=== PATIENT | male | born 1975 | race Caucasian/White ===

== ENCOUNTER 2019-01-27 15:39 | Outpatient (REF) | payer SELFPAY | END 2019-01-27 15:59 | LOC: NCHCN 15:39 | PROVIDERS: PCP Family Medicine; Visit Provider Family Medicine | DX: R73.02 Impaired glucose tolerance (oral) (principal) | CPT/HCPCS: 82043; 82570 ==

== ENCOUNTER 2019-09-08 21:25 | Outpatient (REF) | payer MEDICAID, SELFPAY ==
[2019-09-08 21:46] LABS: Uric Acid 7.7 mg/dL (3.5-7.2)
[2019-09-08 22:03] LABS: Abs Immature Grans 0.01 k/cumm (0.0-0.09); Absolute Basophil Count 0.04 k/cumm (0.0-0.2); Absolute Lymphocyte Count 1.66 k/cumm (1.2-3.4); Absolute Monocyte Count 0.69 k/cumm (0.11-0.7); Absolute Neutrophil Count 4.38 k/cumm (1.2-6.7); Basophils % 0.6; Eosinophils % 4.2; HCT 41.9 % (40.0-50.0); HGB 13.7 g/dL (13.5-17.5); Immature Grans % 0.1; Lymphocytes % 23.4; Mean Corp. HGB Concentration 32.7 g/dL (32.0-36.0); Mean Corpuscular Hemoglobin 28.2 pg (27.0-33.0); Mean Corpuscular Volume 86.2 fL (80-95); Mean Platelet Volume 10.3 fL (8.0-11.0); Monocytes % 9.7; Platelet Count 256 x1000/uL (130-400); RBC 4.86 m/cumm (4.50-6.00); RBC Distribution Width 13.2 % (11.8-14.1); White Blood Cell Count 7.08 k/cumm (4.4-10.8)
[2019-09-11 11:20] LABS: Lyme Ab w Rflx to Lyme Confirm Negative
== END 2019-09-08 21:45 ==
LOC: NCHCN 21:25
PROVIDERS: PCP Family Medicine; Visit Provider Family Medicine
DX: M13.80 Other specified arthritis, unspecified site (principal)
CPT/HCPCS: 84550; 85025; 86618

== ENCOUNTER 2019-09-10 20:17 | Emergency (ER) | payer MEDICAID, SELFPAY ==
[2019-09-10 20:21] VITALS: BP 160/91; PULSE 96; RESP 20; TEMP 36.8; O2SAT 98
--- NOTE | 2019-09-10 20:51 | ED.GENADUL_ITS ---
Discharge Plan Disposition Patient Disposition: HOME Discharge Details Chief Complaint: Orthopedic Clinical Impression: Effusion of left knee Primary Care Provider: Jigna Chacon ED Provider: Shai Navarro Home Meds and New Rx's Prescriptions: Continued aripiprazole [Abilify] 20 mg Tablet 20 mg DAILY RF: 0 buprenorphine-naloxone [Suboxone] 8-2 mg Film 8 film DAILY RF: 0 dextroamphetamine-amphetamine [Adderall] 30 mg Tablet 30 mg PO QAM RF: 0 dextroamphetamine-amphetamine [Adderall] 5 mg Tablet 5 mg PO QHS RF: 0 Discharge Instructions Additional Instructions: Please take acetaminophen (tylenol) - 650mg every 6 hours by mouth as needed for pain. Please contact your primary care physician to arrange follow-up. Please follow-up with orthopedics. Return to the ER for any worsening or new concerning symptoms. Stand Alone Forms: Work Release Referrals: Jigna Chacon [Primary Care Provider] - Tristan Trevizo MD [ [facility] STAFF PHYSICIAN] - Discharge Data Discharge Date/Time-TO BE ENTERED AT DEPARTURE: 09/11/19 00:05 Medical Decision Making 21:00 --43-year-old male presents with left knee pain worsening over the past 3- 4 days, large effusion on exam.. No trauma. Patient received cortisone shot 2 days ago and symptoms have worsened since that time. Consider septic arthritis. Plan for arthrocentesis. LMX applied. --arthrocentesis performed without complication, 6 mL of clear slightly blood- tinged fluid removed. 00:00 --labs reviewed and elevated CRP and ESR. No leukocytosis. Arthrocentesis cell count shows 500 WBCs. This is not consistent with septic arthritis. On reassessment, patient noted significant improvement and able to better range his knee. Plan for crutches. Chito wrap was applied and plan will be for patient to follow-up with orthopedics. HPI General Mode of arrival: ambulatory . Date/Time Provider Initiated Documentation: 09/10/19 20:22 . Limitations to Documentation: no limitations . Information obtained by: patient . HPI Narrative: 43-year-old male presents with chief complaint of knee pain. Patient notes he developed knee pain on . He does not recall any specific injury. He states that his knee swells up every year or so and he receives cortisone injections from PCP. He went to his PCP on Wednesday and had lidocaine/cortisone injection. He notes initially knee felt better and then later in the afternoon started to worsen. Pain has persisted and now worsened over the past 48 hours. Pain is now severe with associated swelling of the knee. No associated fever. No other joint pain or swelling. Related Data Home Medications Medication Instructions Recorded Confirmed aripiprazole [Abilify] 20 mg DAILY 09/10/19 09/10/19 buprenorphine-naloxone [Suboxone] 8 film DAILY 09/10/19 09/10/19 dextroamphetamine-amphetamine 5 mg PO QHS 09/10/19 09/10/19 [Adderall] dextroamphetamine-amphetamine 30 mg PO QAM 09/10/19 09/10/19 [Adderall] Allergies Allergy/AdvReac Type Severity Reaction Status Date / Time No Known Allergies Allergy Unverified 09/10/19 20:25 General Stated Complaint: Orthopedic IFEOMA: 3 Review of Systems All systems reviewed & are unremarkable except as noted in HPI and below Constitutional Constitutional: Denies fever(s) Musculoskeletal Musculoskeletal: Reports as per HPI Integumentary/Breasts Skin/Breast: Denies rash [facility] Social History Smoking/Tobacco Use Status: Never Alcohol Intake: current Alcohol Intake frequency: holidays/special occasions only Alcohol type: beer Drug use: Never Substance use type: does not use Do you feel safe at home: Yes Do you feel safe in your relationship?: Yes Exam Const General: cooperative and uncomfortable HENMN Mouth: moist mucous membranes Eyes Conjunctivae: conjunctivae normal Resp Effort & Inspection: normal respiratory effort and able to speak in complete sentences Auscultation: clear to auscultation bilaterally Cardio Rate: regular rate Rhythm: regular rhythm Heart Sounds: no murmurs Pulses: posterior tibial pulses present on the left 2+ Skin Rashes: no rashes Neuro General: alert and awake Extrem Left lower extremity: knee Details: tenderness, swelling (diffuse) and abnormal ROM Details: held in an abnormal fashion (slight flexion) and pain with active ROM Details: with extension and with flexion Course Vital Signs Vital signs: Vital Signs Temperature 36.8 C 09/10/19 20:21 Pulse 96 H 09/10/19 20:21 Respiratory Rate 09/10/19 20:21 Blood Pressure 160/91 H 09/10/19 20:21 Pulse Oximetry 98 09/10/19 20:21 Temperature 36.8 C 09/10/19 20:21 Temperature Source Skin 09/10/19 20:21 Pulse 96 H 09/10/19 20:21 Respiratory Rate 20 09/10/19 20:21 Respiratory Effort 09/10/19 20:28 Blood Pressure 160/91 H 09/10/19 20:21 Blood Pressure Position Sitting 09/10/19 20:21 Pulse Oximetry 98 09/10/19 20:21 Oxygen Delivery Method Room Air 09/10/19 20:21 Oxygen Flow Rate 0 09/10/19 20:21 Pain Level 09/10/19 20:21 Procedures Joint Aspiration/Injection Joint Asp./Inject. 1: Time Out Performed: Yes Side of body: left Joint Aspirated: knee Skin Prep: Povidone-Iodine1% Local Anesthetic: other anesthetic (LET) Needle Size Used: 18G Fluid Obtained: clear Total fluid obtained (mL): 6 Patient Tolerated Procedure: well Complications: none
[2019-09-10 21:14] LABS: Abs Immature Grans 0.01 k/cumm (0.0-0.09); Absolute Basophil Count 0.03 k/cumm (0.0-0.2); Absolute Eosinophil Count 0.09 k/cumm (0.0-0.7); Absolute Lymphocyte Count 1.58 k/cumm (1.2-3.4); Absolute Monocyte Count 0.92 k/cumm (0.11-0.7); Absolute Neutrophil Count 6.42 k/cumm (1.2-6.7); Basophils % 0.3; HCT 40.2 % (40.0-50.0); HGB 13.3 g/dL (13.5-17.5); Immature Grans % 0.1; Lymphocytes % 17.5; Mean Corp. HGB Concentration 33.1 g/dL (32.0-36.0); Mean Corpuscular Hemoglobin 28.2 pg (27.0-33.0); Mean Corpuscular Volume 85.4 fL (80-95); Mean Platelet Volume 9.6 fL (8.0-11.0); Monocytes % 10.2; Neutrophils % 70.9; Platelet Count 242 x1000/uL (130-400); RBC 4.71 m/cumm (4.50-6.00); RBC Distribution Width 12.7 % (11.8-14.1); White Blood Cell Count 9.05 k/cumm (4.4-10.8)
[2019-09-10 21:23] LABS: ALT 80 U/L (16-63); AST 50 U/L (15-37); Albumin 3.4 g/dL (3.4-5.0); Alkaline Phosphatase 59 U/L (46-116); Anion Gap 6.4 mmol/L (3-11); BUN 10 mg/dL (7-18); Bilirubin, Total 0.4 mg/dL (0.2-1.0); C-Reactive Protein 7.68 mg/dL (0.0-0.3); CO2 30.6 mmol/L (21.0-32.0); CREATININE 1.05 mg/dL (0.70-1.30); Calcium 9.2 mg/dL (8.5-10.1); Chloride 101 mmol/L (98-107); Glucose 141 mg/dL (70-100); Potassium 3.8 mmol/L (3.5-5.1); Sodium 138 mmol/L (136-145); Total Protein 7.6 g/dL (6.4-8.2)
[2019-09-10] MEDS: Acetaminophen 325 MG TAB 650 MG PO (21:32)
[2019-09-10 21:56] LABS: ESR 45 mm/hr (0-15)
[2019-09-10 22:03] LABS: Clarity CLOUDY; Source L KNEE
[2019-09-10 22:04] LABS: Nucleated Cells 500 /MM3 (0-0)
[2019-09-10 22:35] LABS: Mononuclear Cells 40 % (0-0); Polynuclear Cells 60 % (0-0)
[2019-09-11 00:11] VITALS: BP 160/91; PULSE 96; RESP 20; TEMP 36.8; O2SAT 98
== END 2019-09-11 00:05 | disposition home or self-care (01) ==
PROVIDERS: Emergency Provider Student in an Organized Health Care Education/Training Program; PCP Family Medicine
DX: M25.462 Effusion, left knee (principal)
CPT/HCPCS: 20610; 36415; 80053; 85652; 99283; 85025; 86140; 87070; 87205; 89051; 89060; 99282; E0114

== ENCOUNTER 2020-07-26 16:42 | Outpatient (REF) | payer OTHER, SELFPAY ==
[2020-07-26 20:31] LABS: Calculated LDL 121 mg/dL (<100); Cholesterol 193 mg/dL (<200); HDL Cholesterol 39 mg/dL (40-60); Triglyceride 166 mg/dL (<150)
== END 2020-07-26 17:02 ==
LOC: NCHCN 16:42
PROVIDERS: PCP Family Medicine; Visit Provider Registered Nurse
DX: R73.03 Prediabetes (principal); E78.5 Hyperlipidemia, unspecified; F32.9 Major depressive disorder, single episode, unspecified
CPT/HCPCS: 80061; 83036

== ENCOUNTER 2021-02-26 13:07 | Emergency (ER) | payer SELFPAY ==
--- NOTE | 2021-02-26 14:44 | NUR.NOTE ---
Nursing Note: accidently put in father at access. MG
== END 2021-02-26 13:10 ==
PROVIDERS: PCP Family Medicine
DX: R69 Illness, unspecified (principal)

== ENCOUNTER 2021-12-26 16:42 | Outpatient (REF) | payer MEDICAID, SELFPAY ==
[2021-12-26 20:56] LABS: ALT 37 U/L (16-63); AST 29 U/L (15-37); Albumin 3.7 g/dL (3.4-5.0); Alkaline Phosphatase 53 U/L (46-116); Bilirubin, Direct 0.1 mg/dL (0.0-0.2); Bilirubin, Total 0.4 mg/dL (0.2-1.0); Total Protein 6.9 g/dL (6.4-8.2)
== END 2021-12-26 16:43 | disposition home or self-care (01) ==
LOC: NCHCN 16:42
PROVIDERS: PCP Family Medicine; Visit Provider Family Medicine
DX: F11.10 Opioid abuse, uncomplicated (principal)
CPT/HCPCS: 80076

== ENCOUNTER 2022-01-23 18:46 | Outpatient (REF) | payer MEDICAID, SELFPAY ==
[2022-01-23 21:23] LABS: Calculated LDL 139 mg/dL (<100); Cholesterol 202 mg/dL (<200); HDL Cholesterol 50 mg/dL (40-60); Triglyceride 67 mg/dL (<150)
[2022-01-26 10:55] LABS: HIV-1/2 Ag & Ab Screen Negative (Negative)
[2022-01-26 11:01] LABS: Hepatitis C Ab w Rflx HCV PCR Negative (Negative)
== END 2022-01-23 18:47 | disposition home or self-care (01) ==
LOC: NCHCN 18:46
PROVIDERS: PCP Family Medicine; Visit Provider Family Medicine
DX: Z11.4 Encounter for screening for human immunodeficiency virus [HIV] (principal); Z11.59 Encounter for screening for other viral diseases; E78.5 Hyperlipidemia, unspecified
CPT/HCPCS: 80061; 86803; 87389

== ENCOUNTER 2022-07-01 13:10 | Outpatient (REF) | payer MEDICAID, SELFPAY ==
[2022-07-01 14:09] LABS: Anion Gap 6.4 mmol/L (3-11); BUN 14 mg/dL (7-18); CO2 30.6 mmol/L (21.0-32.0); Calcium 8.6 mg/dL (8.5-10.1); Chloride 104 mmol/L (98-107); Glucose 151 mg/dL (74-106); Sodium 141 mmol/L (136-145)
== END 2022-07-01 13:11 | disposition home or self-care (01) ==
LOC: NCHCN 13:10
PROVIDERS: PCP Family Medicine; Visit Provider Nurse Practitioner Family
DX: E66.9 Obesity, unspecified (principal)
CPT/HCPCS: 80048

== ENCOUNTER 2023-08-04 19:04 | Outpatient (REF) | payer MEDICAID, SELFPAY ==
[2023-08-06 09:46] LABS: Hepatitis B Surface Ag Negative (Negative)
[2023-08-06 09:53] LABS: Hep B Core Antibody Negative (Negative)
[2023-08-06 10:18] LABS: HIV-1/2 Ag & Ab Screen Negative (Negative)
[2023-08-06 10:42] LABS: Hepatitis C Ab w Rflx HCV PCR Negative (Negative)
[2023-08-06 11:32] LABS: Syphilis Serology (RPR) Negative (Negative)
[2023-08-06 12:54] LABS: Chlamydia Result Negative (Negative); GC Result Negative (Negative)
== END 2023-08-04 19:05 | disposition home or self-care (01) ==
LOC: NCHCN 19:04
PROVIDERS: PCP Family Medicine; Visit Provider Family Medicine
DX: Z11.3 Encounter for screening for infections with a predominantly sexual mode of transmission (principal); Z11.4 Encounter for screening for human immunodeficiency virus [HIV]; Z11.59 Encounter for screening for other viral diseases; Z01.84 Encounter for antibody response examination
CPT/HCPCS: 86704; 86803; 87340; 87389; 87491; 87591; 86592

== ENCOUNTER 2024-11-01 18:44 | Outpatient (REF) | payer MEDICAID, SELFPAY ==
--- OUTSIDE RECORDS SUMMARY | 2024-11-01 18:47 | XMS_ITS | Encounter Summary ---
Author Organization [facility] Address [address] [place] [id number] Care Team Providers Care Wood Gouger Name Role Phone Unknown, Provider Primary Care Provider Jigna Stephens MD Primary Care Provider [phone] Encounter Details Date Type Department Care Team (Late st Contact Info) Description 08/05/2023 Lab Requisition [facility] Pathology & Laboratory Medicine - [address] [id number] Outr Resulting Lab, Provider Social History Tobacco Use Types Packs/Day Years Used Date Smoking Tobacco: Never Assessed Sex and Gender Information Value Date Recorded Sex Assigned at Male 10/14/2024 15:28 EST Legal Sex Male 18:06 EST Gender Identity Male 10/14/2024 15:28 EST Sexual Orientation Not on file documented as of this encounter Plan of Treatment Not on file documented as of this encounter Procedures Procedure Name Priority Date/Time Associated Diagnosis Comments SYPHILIS SEROLOGY Routine 08/04/2023 18: 40 EDT documented in this encounter Results * SYPHILIS SEROLOGY (08/04/2023 18:40 EDT) Syphilis Serology Negative Negative 08/06/2023 11:27 EDT [facility] Blood VENOUS BLOOD / Unknown 08/04/2023 18:40 EDT 08/05/2023 18:02 EDT us Provider Outr Resulting Lab IMMUNOLOGY AND SEROL OGY ORDERABLES Final Result [facility] [address] [place] [address] documented in this encounter Visit Diagnoses Not on filedocumented in this encounter Care Teams Wood Gouger Relationship Specialty Start Date End Date Unknown, Provider, PCP - General 09/21/15 10/13/24 Jigna Chacon MD [address] [place] [phone] PCP - General Family Medicine - Primary Care 10/14/24 documented as of this encounter
--- OUTSIDE RECORDS SUMMARY | 2024-11-01 18:47 | XMS_ITS ---
Author Organization Unknown Address [address] [place] [phone] Phone Care Team Providers Care Mill Hand Name Role Phone LIBERTAD Alvarez Attending Unavailable KIT An Primary Unavailable Social History Type Status Start Date End Date Code Code Syst em Smoking History Former smoker 9581986 SNOMED CT Sex Male Medications Medication Start Date End Date Route Frequency Dose Code Code System Medication Instructions Home Meds Methocarbamol 500MG Oral Tablet 01/28/2022 02/26/2023 ORAL THREE TIMES A DAY 874272 RxNorm TAKE 1-2 TABLET ORAL THREE TIMES A DAY Assessment You had the following problems:SCHIZOPHRENIABIPOLAR DISORDERDIABETES Hospital Discharge Instructions Should you have any questions prior to discharge, please contact a member of your healthcare team. If you have left the hospital and have any questions, please contact your primary care physician. Reason For Referral No Data Found Problems Problem Start Date Resolved Date Status Code Code System SCHIZOPHRENIA active 80193240 SNOMED -CT BIPOLAR DISORDER active 79609054 SNO MED-CT DIABETES active 49887756 SNOMED-CT Allergies and Adverse Reactions Allergy Substance Reaction Severity Start Date Concern Status Code Code System BEE POLLEN Anaphylaxis (SNOMED-CT: 22032287) Active 066027 RxNorm Plan of Treatment PFT COMPLETE W JUANITOLAJEOVANY 01/19/2023 Encounters Encounter Diagnosis Start Date Code Code Sys tem Refusal of treatment by patient 03/06/2022 589014949 SNOMED-CT Personal Care Team Section Performer Name Performer Role Active Date Inactive Da rigoberto
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
--- OUTSIDE RECORDS SUMMARY | 2024-11-01 18:47 | XMS_ITS | Encounter Summary ---
Author Organization [facility] Address [address] [place] [address] Care Team Providers Care Mash Tub Cooker Name Role Phone Unknown, Provider Primary Care Provider Jigna Stephens MD Primary Care Provider [phone] Encounter Details Date Type Department Care Team (Late st Contact Info) Description 08/05/2023 Lab Requisition [facility] Pathology & Laboratory Medicine - [facility] [address] [place], [place] [phone] Outr Resulting Lab, Provider Social History Tobacco [...] Procedure Name Priority Date/Time Associated Diagnosis Comments HIV 1/2 ANTIGEN AND ANTIBODY, 4TH GENERATION Routine 08/04/2023 18:40 EDT documented in this encounter Results * HIV 1/2 ANTIGEN AND ANTIBODY, 4TH GENERATION (08/04/2023 18:40 EDT) HIV 1 and 2 Antibody/p24 Antigen, 4th Generation Negative Negative 08/06/2023 10:13 EDT [facility] Comment:If acute HIV-1 infec tion is suspected in a high risk patient, submit plasma specimen for HIV-1 RNA quantitation test. Blood VENOUS BLOOD / Unknown 08/04/2023 18:40 EDT 08/05/2023 18:02 EDT Narrative [facility] - 08/06/2023 10:13 EDT Fourth Generation assay performed on the [employer] XPT. us Provider Outr Resulting Lab IMMUNOLOGY AND SEROL OGY ORDERABLES Final Result [facility] [address] [place] [address] documented in this encounter Visit Diagnoses Not on filedocumented in this encounter Care Teams Mash Tub Cooker Relationship Specialty Start Date End Date Unknown, Provider, PCP - General 09/21/15 10/13/24 Jigna Chacon MD [address] [place] [phone] PCP - General Family Medicine - Primary Care 10/14/24 documented as of this encounter
--- OUTSIDE RECORDS SUMMARY | 2024-11-01 18:47 | XMS_ITS | Encounter Summary ---
Author Organization [facility] Address [address] [place] [address] Care Team Providers Care Date Night Sitter Name Role Phone Unknown, Provider MD Primary Care Provider Unava ilable Encounter Details Date Type Department Care Team (Late st Contact Info) Description 09/02/2019 Results Only Imaging [facility] [phone] Unknown, Provider, Social History Tobacco Use Types Packs/Day Years Used Date Smoking Tobacco: Never Assessed Sex and Gender Information Value Date Recorded Sex Assigned at Male 10/14/2024 15:28 EST Legal Sex Male 18:06 EST Gender Identity Male 10/14/2024 15:28 EST Sexual Orientation Not on file documented as of this encounter Plan of Treatment Pending Results Name Type Priority Associated Diagnoses Date /Time OUTSIDE IMAGES - PLAIN FILM MSK Imaging 09/02/2019 22:26 EDT documented as of this encounter Visit Diagnoses Not on filedocumented in this encounter Care Teams Date Night Sitter Relationship Specialty Start Date End Date Unknown, Provider, PCP - General 09/21/15 10/13/24 documented as of this encounter
--- OUTSIDE RECORDS SUMMARY | 2024-11-01 18:47 | XMS_ITS | Encounter Summary ---
Author Organization [facility] Address [address] [place] [address] Care Team Providers Care Ice Cream Machine Operator Name Role Phone Unknown, Provider Primary Care Provider Jigna Stephens MD Primary Care Provider [phone] Encounter Details Date Type Department Care Team (Late st Contact Info) Description 01/23/2022 Lab Requisition [facility] Pathology & Laboratory Medicine - [address] [address] Outr Resulting Lab, Provider Social History Tobacco [...] Procedure Name Priority Date/Time Associated Diagnosis Comments HEPATITIS C AB W REFLEX TO HCV RNA BY PCR Routine 01/23/2022 12:30 EST documented in this encounter Results * HEPATITIS C AB W REFLEX TO HCV RNA BY PCR (01/23/2022 12:30 EST) Hep C Antibody Negative Negative 01/26/2022 10:56 EDT [facility] Blood VENOUS BLOOD / Unknown 01/23/2022 12:30 EST 01/25/2022 16:04 EDT us Provider Outr Resulting Lab CHEMISTRY & BLOOD GA S ORDERABLES Final Result [facility] [address] [place] [address] documented in this encounter Visit Diagnoses Not on filedocumented in this encounter Care Teams Ice Cream Machine Operator Relationship Specialty Start Date End Date Unknown, Provider, PCP - General 09/21/15 10/13/24 Jigna Chacon MD [address] [place] [address] PCP - General Family Medicine - Primary Care 10/14/24 documented as of this encounter
--- OUTSIDE RECORDS SUMMARY | 2024-11-01 18:47 | XMS_ITS | Encounter Summary ---
Author Organization [facility] Address [address] [place] [address] Care Team Providers Care Valve Machine Operator Name Role Phone Unknown, Provider Primary Care Provider Jigna Stephens MD Primary Care Provider [phone] Encounter Details Date Type Department Care Team (Late st Contact Info) Description 08/05/2023 Lab Requisition [facility] Pathology & Laboratory Medicine - [address] [address] Outr Resulting Lab, Provider Social History Tobacco [...] Procedure Name Priority Date/Time Associated Diagnosis Comments CHLAMYDIA/N. GONORRHOEAE AMPLIFIED NUCLEIC ACID Routine 08/04/2023 18:40 EDT documented in this encounter Results * CHLAMYDIA/N. GONORRHOEAE AMPLIFIED RNA (08/04/2023 18:40 EDT) Neisseria gonorrhoeae Result Negative Negative 08/06/2023 12:50 EDT [facility] Chlamydia trachomatis Result Negative Negative 08/06/2023 12:50 EDT [facility] Urine URINE / Unknown 08/04/2023 1 8:40 EDT 08/05/2023 19:28 EDT us Provider Outr Resulting Lab MICROBIOLOGY - GENER AL ORDERABLES Final Result [facility] [address] [place] [address] documented in this encounter Visit Diagnoses Not on filedocumented in this encounter Care Teams Valve Machine Operator Relationship Specialty Start Date End Date Unknown, Provider, PCP - General 09/21/15 10/13/24 Jigna Chacon MD [address] [place] [address] PCP - General Family Medicine - Primary Care 10/14/24 documented as of this encounter
--- OUTSIDE RECORDS SUMMARY | 2024-11-01 18:47 | XMS_ITS | Encounter Summary ---
Author Organization [facility] Address [address] [place] [address] Care Team Providers Care Case Filler Name Role Phone Unknown, Provider Primary Care Provider Jigna Stephens MD Primary Care Provider [phone] Encounter Details Date Type Department Care Team (Late st Contact Info) Description 12/12/2020 Results Only Imaging [facility] Radiology Results [address] [place] [address] Bubba Bender PA-C [address] [place] [address] Social History Tobacco Use Types Packs/Day Years [...] Procedure Name Priority Date/Time Associated Diagnosis Comments XR RIBS LEFT WITH PA CHEST 12/12/2020 16:20 EST documented in this encounter Results * XR RIBS LEFT WITH PA CHEST (12/12/2020 16:20 EST) Anatomical Region Laterality Modality Left Computed Radiogr aphy 12/12/2020 16:2 0 EST Narrative 12/12/2020 16:20 EST ? EXAM: RADIOLOGY/RIBS LT 3V W/ PA CHEST ?EX. D/ (1614) ? CLINICAL INFORMATION: ? Fall onto left ribs ? PROCEDURE INFORMATION: ? Exam: XR Left Ribs ? Exam date and time: 12/12/2020 3:16 PM ? Age: 45 years old ? Clinical indication: Injury or trauma; Fall; Rib area, left ? side; Blunt trauma; Additional info: Fall onto left ribs ? TECHNIQUE: ? Imaging protocol: XR Left ribs. ? Views: 2 views. ? COMPARISON: ? No relevant prior studies available. ? FINDINGS: ? Bones/joints: There is no evidence of a fractured rib. There are ? degenerative changes of the lumbar spine. There is a slight ? levoscoliosis of the lumbar spine. ? Lungs: There is a poor inspiratory effort. ? Gastrointestinal tract: There are feces within the colon which ? could represent some degree of constipation. ? Soft tissues: Normal. ? IMPRESSION: ? Poor inspiratory effort. Suspect some degree of constipation. ? Osseous findings as above. ? REPORT SIGNED IN OTHER VENDOR SYSTEM 12/12/2020 ?Reported By: Lc Quiroz MD ? CC: ? Transcribed Date/Time: 12/12/2020 (1620) ? Mill Platform Supervisor: ? Printed Date/Time: 12/12/2020 (1620) ? PAGE 1 ? Signed Report ? Procedure Note Lc Quiroz MD - 12/12/2020 EXAM: RADIOLOGY/RIBS LT 3V W/ PA CHEST EX. D/ (2054) CLINICAL INFORMATION: Fall onto left ribs PROCEDURE INFORMATION: Exam: XR Left Ribs Exam date and time: 12/12/2020 3:16 PM Age: 45 years old Clinical indication: Injury or trauma; Fall; Rib area, left side; Blunt trauma; Additional info: Fall onto left ribs TECHNIQUE: Imaging protocol: XR Left ribs. Views: 2 views. COMPARISON: No relevant prior studies available. FINDINGS: Bones/joints: There is no evidence of a fractured rib. There are degenerative changes of the lumbar spine. There is a slight levoscoliosis of the lumbar spine. Lungs: There is a poor inspiratory effort. Gastrointestinal tract: There are feces within the colon which could represent some degree of constipation. Soft tissues: Normal. IMPRESSION: Poor inspiratory effort. Suspect some degree of constipation. Osseous findings as above. REPORT SIGNED IN OTHER VENDOR SYSTEM 12/12/2020 Reported By: Lc Quiroz MD CC: Transcribed Date/Time: 12/12/2020 (1619) Mill Platform Supervisor: Printed Date/Time: 12/12/2020 (162) PAGE 1 Signed Report Bubba Bender PA-C IMG DIAGNOSTIC IMAGING ORDERABLE S Final Result documented in this encounter Visit Diagnoses Not on filedocumented in this encounter Care Teams Case Filler Relationship Specialty Start Date End Date Unknown, Provider, PCP - General 09/21/15 10/13/24 Jigna Chacon MD [address] [place] [address] PCP - General Family Medicine - Primary Care 10/14/24 documented as of this encounter
--- OUTSIDE RECORDS SUMMARY | 2024-11-01 18:47 | XMS_ITS | Encounter Summary ---
Author Organization [facility] Address [address] [place] [address] Care Team Providers Care Cement Finisher Helper Name Role Phone Unknown, Provider Primary Care Provider Jigna Stephens MD Primary Care Provider [phone] Encounter Details Date Type Department Care Team (Late st Contact Info) Description 08/05/2023 Lab Requisition [facility] Pathology & Laboratory Medicine - [address] [id number] Outr Resulting Lab, Provider Social History Tobacco [...] REFLEX TO HCV RNA BY PCR Routine 08/04/2023 18:40 EDT HEPATITIS B CORE ANTIBODY (TOTAL) Routine 08/04/2023 18:40 EDT HEPATITIS B SURFACE ANTIGEN Routine 08/04/2023 18:40 EDT documented in this encounter Results * HEPATITIS B CORE ANTIBODY (TOTAL) (08/04/2023 18:40 EDT) Hepatitis B Core Ab, Total Negative Negative 08/06/2023 9:49 EDT [facility] Blood VENOUS BLOOD / Unknown 08/04/2023 18:40 EDT 08/05/2023 18:02 EDT us Provider Outr Resulting Lab CHEMISTRY & BLOOD GA S ORDERABLES Final Result Performing Organization Address City/[facility]/ZIP Co de Phone Number [facility] [address] [place] [address] * HEPATITIS B SURFACE ANTIGEN (08/04/2023 18:40 EDT) Hep B Surface Ag Negative Negative 08/06/2023 9:42 EDT [facility] Blood VENOUS BLOOD / Unknown 08/04/2023 18:40 EDT 08/05/2023 18:02 EDT us Provider Outr Resulting Lab CHEMISTRY & BLOOD GA S ORDERABLES Final Result Performing Organization Address [facility] Co de Phone Number [facility] [address] [place] [address] * HEPATITIS C AB W REFLEX TO HCV RNA BY PCR (08/04/2023 18:40 EDT) Hep C Antibody Negative Negative 08/06/2023 10:38 EDT [facility] Blood VENOUS BLOOD / Unknown 08/04/2023 18:40 EDT 08/05/2023 18:02 EDT us Provider Outr Resulting Lab CHEMISTRY & BLOOD GA S ORDERABLES Final Result Performing Organization Address City/[facility] Co de Phone Number [facility] [address] [place] [address] documented in this encounter Visit Diagnoses Not on filedocumented in this encounter Care Teams Cement Finisher Helper Relationship Specialty Start Date End Date Unknown, Provider, PCP - General 09/21/15 10/13/24 Jigna Chacon MD [address] [place] [phone] PCP - General Family Medicine - Primary Care 10/14/24 documented as of this encounter
--- OUTSIDE RECORDS SUMMARY | 2024-11-01 18:47 | XMS_ITS ---
Author Organization Unknown Address [address] [place] [phone] Phone Care Team Providers Care Revenue Enforcement Collection Agent Name Role Phone TOMAS LUNA Registered Nurse Unavailable TITO Munoz Attending Unavailable UNLISTED PROVIDER - REQUESTED ER Un available KIT An Primary Unavailable Social History Type Status Start Date End Date Code Code Syst em Smoking History Former smoker 9672959 SNOMED CT Sex Male Vital Signs Vital Sign Value Unit Island Value Island Unit Date/Time Recent/Initial? Code Code System Body Mass Index 45.91 kg/m2 02/26/2023 18:37 Initial 48582 -5 INC Systolic Blood Pressure 159 mm[Hg] 02/26/2023 18:37 Initial 8480- 6 LOINC Diastolic Blood Pressure 90 mm[Hg] 02/26/2023 18:37 Initial 8462- 4 LOINC Body Surface Area 2.68 m2 02/26/2023 18:37 Initial 3140- 1 LOINC Height 177.800 0 cm 70.00 in 02/26/2023 18:37 Initial 8302- 2 LOINC O2 Saturation 98 % 2022 18:37 Initial 14536 -5 LOINC Pulse 86.0 /min 02/26/2023 18:37 Initial 8867- 4 LOINC Respiration 16 /min 02/27/20 18:37 Initial 9279- 1 LOINC Temperature 36.6 Kat 97.9 F 02/27/20 18:37 Initial 8310- 5 LOINC Weight 145.15 kg 320.00 lbs 02/26/2023 18:37 Initial 75042 -7 LOINC Medications Medication Start Date End Date Route Frequency Dose Code Code System Medication Instructions Home Meds Methocarbamol 500MG Oral Tablet 01/28/2022 02/26/2023 ORAL THREE TIMES A DAY 340563 RxNorm TAKE 1-2 TABLET ORAL THREE TIMES [...] Date Status Code Code System SCHIZOPHRENIA active 19734410 SNOMED -CT BIPOLAR DISORDER active 60751455 SNO MED-CT DIABETES active 34327742 SNOMED-CT Allergies and Adverse Reactions Allergy Substance Reaction Severity Start Date Concern Status Code Code System BEE POLLEN Anaphylaxis (SNOMED-CT: 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
--- OUTSIDE RECORDS SUMMARY | 2024-11-01 18:47 | XMS_ITS ---
Author Organization Unknown Address [address] [place] [phone] Phone Care Team Providers Care Streetcar Dispatcher Name Role Phone KERVIN OLSON Registered Nurse Unavailable ELSI Beckett Attending Unavailable JONNIE Solomon [facility] Unavailable KIT An Primary Unavailable UNLISTED PROVIDER - REQUESTED Xhandoff Un available Social History Type Status Start Date End Date Code Code Syst em Smoking History Former smoker 1232692 SNOMED CT Sex Male Vital Signs Vital Sign Value Unit Wirt Value Wirt Unit Date/Time Recent/Initial? Code Code System Body Mass Index 39.75 kg/m2 01/28/2022 19:01 Initial 53218 -5 [facility] Systolic Blood Pressure 115 mm[Hg] 01/28/2022 19:01 Initial 8480- 6 LOINC Diastolic Blood Pressure 61 mm[Hg] 01/28/2022 19:01 Initial 8462- 4 [facility] Body Surface Area 2.54 m2 01/28/2022 19:01 Initial 3140- 1 LOINC Height 180.340 0 cm 71.00 in 01/28/2022 19:01 Initial 8302- 2 LOINC O2 Saturation 100 % 2021 19:01 Initial 55427 -5 [facility] Pulse 72.0 /min 01/28/2022 19:01 Initial 8867- 4 LOINC Respiration 16 /min 01/29/20 19:01 Initial 9279- 1 LOINC Temperature 36.1 Kat 97.0 F 01/29/20 19:01 Initial 8310- 5 LOINC Weight 129.27 kg 285.00 lbs 01/28/2022 19:01 Initial 19821 -7 [facility] Medications Medication Start Date End Date Route Frequency Dose Code Code System Medication Instructions Home Meds Methocarbamol 500MG Oral Tablet 01/28/2022 02/26/2023 ORAL THREE TIMES A DAY 734039 RxNorm TAKE 1-2 TABLET ORAL THREE TIMES [...] Date Status Code Code System SCHIZOPHRENIA active 54070202 SNOMED -CT BIPOLAR DISORDER active 57348913 SNO MED-CT DIABETES active 93356103 SNOMED-CT Allergies and Adverse Reactions Allergy Substance Reaction Severity Start Date Concern Status Code Code System BEE POLLEN Anaphylaxis (SNOMED-CT: 44690643) Active 739373 RxNorm Plan of Treatment PFT RIN CURRIE 01/19/2023 Encounters Encounter Diagnosis Start Date Code Code Sys tem Strain of muscle and tendon of back wall of thorax, initial encounter 01/28/2022 SNOMED-CT Personal Care Team Section Performer Name Performer Role Active Date Inactive Chet franklin
--- OUTSIDE RECORDS SUMMARY | 2024-11-01 18:47 | XMS_ITS | Clinical Summary ---
Author Organization [facility] Address [address] [place] [address] Care Team Providers Care Animation Director Name Role Phone Jigna Chacon MD Primary Care Provider [phone] Allergies Active Allergy Reactions Criticality Noted Date Comments Venom-Honey Bee Anaphylaxis High 10/14/2024 Venom-Wasp Anaphylaxis High 03/05/2017 Encounters Date Type Department Care Team Description 10/14/2024 14:28 EST - 10/14/2024 16:00 EST Emergency [facility] Emergency Department [address] [place] [address] Heber Larose MD [place] ([facility]) (Primary Dx) Discharge Disposition: Home or Self Care from Last 3 Months Social History Tobacco Use Types Packs/Day Years Used Date Smoking Tobacco: Every Day Cigarettes 3 0.6 Started: 03/2024 Comments:Cessation of smokin g for ~20 years & resumed 6 months ago Sex and Gender Information Value Date Recorded Sex Assigned at Male 10/14/2024 15:28 EST Legal Sex Male 18:06 EST Gender Identity Male 10/14/2024 15:28 EST Sexual Orientation Not on file Obstetrics History Last Filed Vital Signs Vital Sign Reading Time Taken Comments Blood Pressure 147/90 10/14/2024 1559 EST Pulse 80 10/14/2024 1559 EST Temperature 37 ??C (98.6 ??F) 10/14/2024 1425 EST Respiratory Rate 15 10/14/2024 1559 EST Oxygen Saturation 98% 10/14/2024 1559 EST Inhaled Oxygen Concentration - - Weight 125.2 kg (276 lb) 10/14/2024 1425 EST Height - - Body Mass Index - - Plan of Treatment Health Maintenance Due Date Last Done Comments Hepatitis B Vaccine (1 of 3 - 19+ 3-dose series) 1996 COVID-19 Vaccine ( season) 2024 Hepatitis C Screen Completed 08/04/2023, 01/23/2022 Procedures Procedure Name Priority Date/Time Associated Diagnosis Comments HEPATITIS C AB W REFLEX TO HCV RNA BY PCR Routine 08/04/2023 18:40 EDT from Last 3 Months or Most Recently Relevant to Health Maintenance Results * HEPATITIS C AB W REFLEX TO HCV RNA BY PCR (08/04/2023 18:40 EDT) Hep C Antibody Negative Negative 08/06/2023 10:38 EDT [facility] Blood VENOUS BLOOD / Unknown 08/04/2023 18:40 EDT 08/05/2023 18:02 EDT us Provider Outr Resulting Lab CHEMISTRY & BLOOD GA S ORDERABLES Final Result [facility] [address] [place] [address] from Last 3 Months or Most Recently Relevant to Health Maintenance [place] [address] , [place] [address] , [place] [address] Care Teams Animation Director Relationship Specialty Start Date End Date Jigna Chacon MD [address] [place] [phone] PCP - General Family Medicine - Primary Care 10/14/24
--- OUTSIDE RECORDS SUMMARY | 2024-11-01 18:47 | XMS_ITS | Encounter Summary ---
Author Organization [facility] Address [address] [place] [address] Care Team Providers Care Traffic Incident Management Manager Name Role Phone Unknown, Provider Primary Care Provider Jigna Stephens MD Primary Care Provider [phone] Encounter Details Date Type Department Care Team (Late st Contact Info) Description 01/23/2022 Lab Requisition [facility] Pathology & Laboratory Medicine - [facility] [address] [place], [place] [phone] Outr Resulting Lab, Provider Social History Tobacco [...] 1/2 ANTIGEN AND ANTIBODY, 4TH GENERATION Routine 01/23/2022 12:30 EST documented in this encounter Results * HIV 1/2 ANTIGEN AND ANTIBODY, 4TH GENERATION (01/23/2022 12:30 EST) HIV 1 and 2 Antibody/p24 Antigen, 4th Generation Negative Negative 01/26/2022 10:50 EDT [facility] Comment:If acute HIV-1 infec tion is suspected in a high risk patient, submit plasma specimen for HIV-1 RNA quantitation test. Blood VENOUS BLOOD / Unknown 01/23/2022 12:30 EST 01/25/2022 16:04 EDT Narrative [facility] - 01/26/2022 10:50 EDT Fourth Generation assay performed on the Siemens Centaur XPT. us Provider Outr Resulting Lab IMMUNOLOGY AND SEROL OGY ORDERABLES Final Result [facility] [address] [place] [address] documented in this encounter Visit Diagnoses Not on filedocumented in this encounter Care Teams Traffic Incident Management Manager Relationship Specialty Start Date End Date Unknown, Provider, PCP - General 09/21/15 10/13/24 Jigna Chacon MD [address] [place] [phone] PCP - General Family Medicine - Primary Care 10/14/24 documented as of this encounter
--- OUTSIDE RECORDS SUMMARY | 2024-11-01 18:47 | XMS_ITS | Referral Summary ---
Author Organization [facility] Address [address] [place] [address] Care Team Providers Care Director Of Product Development Name Role Phone Jigna Chacon MD Primary Care Provider Encounters Date Type Department Care Team Description 10/14/2024 14:28 EST - 10/14/2024 16:00 EST Emergency [facility] Emergency Department [address] [place] [address] Heber Larose MD [place] ([facility]) (Primary Dx) Discharge Disposition: Home or Self Care from Last 3 Months Allergies Active Allergy Reactions Criticality Noted Date Comments Venom-Honey Bee Anaphylaxis High 10/14/2024 Venom-Wasp Anaphylaxis High 03/05/2017 Social History Tobacco Use Types Packs/Day Years Used Date Smoking Tobacco: Every Day Cigarettes 3 0.6 Started: 03/2024 Comments:Cessation of smokin g for ~20 years & resumed 6 months ago Sex and Gender Information Value Date Recorded Sex Assigned at Male 10/14/2024 15:28 EST Legal Sex Male 18:06 EST Gender Identity Male 10/14/2024 15:28 EST Sexual Orientation Not on file Last Filed Vital Signs Vital Sign Reading Time Taken Comments Blood Pressure 147/90 10/14/2024 1559 EST Pulse 80 10/14/2024 1559 EST Temperature 37 ??C (98.6 ??F) 10/14/2024 1425 EST Respiratory Rate 15 10/14/2024 1559 EST Oxygen Saturation 98% 10/14/2024 1559 EST Inhaled Oxygen Concentration - - Weight 125.2 kg (276 lb) 10/14/2024 1425 EST Height - - Body Mass Index - - Functional Status * Are you deaf or do you have serious difficulty hearing? Answer Date of Assessment Author No 10/14/2024 14:26 EST Tesha Mireles, EDWIN Plan of Treatment Not on file Procedures Procedure Name Priority Date/Time Associated Diagnosis Comments HEPATITIS C AB W REFLEX TO HCV RNA BY PCR Routine 08/04/2023 18:40 EDT from Last 3 Months or Most Recently Relevant to Health Maintenance Results * HEPATITIS C AB W REFLEX TO HCV RNA BY PCR (08/04/2023 18:40 EDT) Hep C Antibody Negative Negative 08/06/2023 10:38 EDT [facility] Blood VENOUS BLOOD / Unknown 08/04/2023 18:40 EDT 08/05/2023 18:02 EDT us Provider Outr Resulting Lab CHEMISTRY & BLOOD GA S ORDERABLES Final Result [facility] [address] [place] [phone] from Last 3 Months or Most Recently Relevant to Health Maintenance Insurance MEDICAID [place] Care Teams Director Of Product Development Relationship Specialty Start Date End Date Jigna Chacon MD [address] [place] [phone] PCP - General Family Medicine - Primary Care 10/14/24
[2024-11-01 21:32] LABS: COMMENT (LAB VIEW ONLY) 109.13 mg/dL; Microalb ug/mg Crea 2.5 ug/mg Cr
[2024-11-01 21:33] LABS: Anion Gap 7.3 mmol/L (3-11); BUN 18 mg/dL (7-18); CO2 27.7 mmol/L (21.0-32.0); CREATININE 1.1 mg/dL (0.70-1.30); Calcium 9.4 mg/dL (8.5-10.1); Chloride 105 mmol/L (98-107); Estimated GFR 83.32 (mL/min/1.73m2); Glucose 118 mg/dL (74-106); Potassium 4.5 mmol/L (3.5-5.1); Sodium 140 mmol/L (136-145)
== END 2024-11-01 18:45 | disposition home or self-care (01) ==
LOC: NCHCN 18:44
PROVIDERS: PCP Family Medicine; Visit Provider Family Medicine
DX: R73.03 Prediabetes (principal); I10 Essential (primary) hypertension
CPT/HCPCS: 80048; 82043; 82570

== ENCOUNTER 2024-12-29 12:54 | Emergency (ER) | payer MEDICAID, SELFPAY ==
[2024-12-29 12:59] VITALS: BP 132/83; PULSE 75; RESP 20; O2SAT 95
[2024-12-29 13:21] LABS: Bilirubin Negative (Negative); Blood Negative (Negative); Clarity Clear (Clear); Glucose Negative (Negative); Ketones Negative (Negative); Leukocyte Esterase Trace (Negative); Nitrite Negative (Negative); Urobilinogen 0.2 mg/dL (Up to 0.2)
[2024-12-29 13:29] LABS: Bacteria Rare HPF (Negative); C & S Indicated? No; Casts Negative LPF (Negative); Crystals Negative HPF (Negative); Epithelial Cells Rare HPF (Negative); Mucus Negative (Negative); RBC 0-2 HPF (0-2)
[2024-12-29 13:36] LABS: *AMPHETAMINES SCREEN URINE Negative (Negative); *BARBITURATES SCREEN URINE Negative (Negative); *BENZODIAZEPINES SCREEN URINE Negative (Negative); Cannabinoids THC Negative (Negative); Cocaine Screen,Urine Negative (Negative); METHADONE URINE SCREEN Negative (Negative); OPIATES URINE SCREEN Negative (Negative)
[2024-12-29 13:38] LABS: Tricyclic Antidepressants Negative (Negative)
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
[2024-12-29 16:14] LABS: Abs Immature Grans 0.02 10^3/uL (0.0-0.06); Absolute Basophil Count 0.07 10^3/uL (0.0-0.2); Absolute Eosinophil Count 0.18 10^3/uL (0.0-0.7); Absolute Lymphocyte Count 1.79 10^3/uL (1.2-3.4); Absolute Monocyte Count 0.63 10^3/uL (0.1-0.8); Absolute Neutrophil Count 4.42 10^3/uL (1.2-6.7); Eosinophils % 2.5 %; HCT 45.3 % (40.0-50.0); HGB 15.1 g/dL (13.5-17.5); Immature Grans % 0.3 %; Lymphocytes % 25.2 %; MCH 28.6 pg (27.0-33.0); MCHC 33.3 % (32.0-36.0); MCV 86 fL (80-95); MPV 8.6 fL (8.0-11.0); Monocytes % 8.9 %; Neutrophils % 62.1 %; Platelet Count 240 10^3/uL (130-400); RBC 5.28 10^6/uL (4.36-5.78); RDW 12.7 % (11.8-14.1); RDW-SD 39.8 fL; WBC 7.11 10^3/uL (4.4-10.8)
[2024-12-29] MEDS: Buprenorphine/Naloxone 8 mg/2 mg FILM 2 EACH SL (16:34)
[2024-12-29 16:40] LABS: ALT 31 U/L (16-63); AST 18 U/L (15-37); Albumin 3.5 g/dL (3.4-5.0); Alkaline Phosphatase 50 U/L (46-116); Anion Gap 1.5 mmol/L (3-11); BUN 27 mg/dL (7-18); Bilirubin, Total 0.42 mg/dL (0.2-1.0); CO2 31.5 mmol/L (21.0-32.0); Calcium 9.4 mg/dL (8.5-10.1); Chloride 104 mmol/L (98-107); ETHANOL BLOOD < 3.0 mg/dL (<10); Estimated GFR 93.42 (mL/min/1.73m2); Glucose 141 mg/dL (74-106); Potassium 3.9 mmol/L (3.5-5.1); Sodium 137 mmol/L (136-145); TSH (W/Ref FT4) 2.03 uIU/mL (0.36-3.74); Total Protein 7.1 g/dL (6.4-8.2)
[2024-12-29 17:04] LABS: Salicylate < 2.8 mg/dL (<2.8)
[2024-12-29 17:08] LABS: Acetaminophen < 2 ug/mL (10-30)
--- NOTE | 2024-12-29 17:14 | W.EDPROG ---
Date of service: 12/29/24 Time of Service: 17:14 Medical Decision Making Care assumed from off going provider. Patient is currently under an involuntary EE hold. Pending second certification. At this time has been calm and redirectable. Will continue to closely monitor. Quality:SDOH Health Related Social Needs: No Data to Display Discharge Plan Disposition Patient Disposition: Home Condition: Serious Discharge Details Clinical Impression: Paranoid delusion, Threatening behavior Primary Care Provider: Jigna Chacon ED Provider: Juan Carlos Yanes Home Meds and New Rx's Prescriptions: No Action aripiprazole [Abilify] 20 mg Tablet 30 mg PO DAILY buprenorphine-naloxone [Suboxone] 8-2 mg Film 2 film sublingual DAILY dextroamphetamine-amphetamine [Adderall] 30 mg Tablet 30 mg PO QAM dextroamphetamine-amphetamine [Adderall] 5 mg Tablet 5 mg PO QHS
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
[2024-12-29] MEDS: Nicotine 4 MG GUM CH (18:25)
[2024-12-29] MEDS: QUEtiapine 25 MG TAB 100 MG PO (20:06)
--- NOTE | 2024-12-30 06:56 | W.EDPROG ---
Date of service: 12/30/24 Time of Service: 06:56 Medical Decision Making Patient brought in on a mental health warrant. He has been medically cleared. He is on involuntary hold and is waiting second certification from psychiatry. No issues overnight, has been sleeping and cooperative. Discharge Plan Disposition Patient Disposition: Home Condition: Serious Discharge Details Clinical Impression: Paranoid delusion, Threatening behavior Primary Care Provider: Jigna Chacon ED Provider: Dwaien Becerril [place] Siva and New Rx's Prescriptions: No Action aripiprazole [Abilify] 20 mg Tablet 30 mg PO DAILY buprenorphine-naloxone [Suboxone] 8-2 mg Film 2 film sublingual DAILY dextroamphetamine-amphetamine [Adderall] 30 mg Tablet 30 mg PO QAM dextroamphetamine-amphetamine [Adderall] 5 mg Tablet 5 mg PO QHS
[2024-12-30] MEDS: ARIPiprazole 15 MG TAB 30 MG PO (08:43)
[2024-12-30] MEDS: Nicotine 4 MG GUM CH ×2 (10:10→19:36)
--- NOTE | 2024-12-30 10:56 | PDOC.CMSAFE ---
Date of service: 12/30/24 Time of Service: 10:56 Care Management Safety Plan Status Status: Involuntary Reason for Wait Reason for Wait: Inpatient Admission and Assessment/Screening (2nd EE) Safety Plan Safety Plan: INVOLUNTARY FOR INPATIENT PSYCHIATRIC STABILIZATION.? Patient is appropriate in all interactions since arriving at [facility]; Pt has demonstrated appropriate coping and communication skills, has articulated his or her needs and concerns and is fully engaged during staff interactions. Safety plan has been established with patient, and care team, to adhere to patient goals, identify restrictions based on behavioral status, address nutrition, and determine allowed personal belongings, tools for hygiene and personal care. Determine level of activity including ambulation, level of supervision, visitors, and determine privileges based on behaviors and level of engagement by pt. SAFETY PLAN: 1. Will remain on suicide precautions, in paper clothes 2. Will remain in Zone B under direct supervision of one-on-one staff at all times provided by [employer]; HALLE, [employer]CTORY WORKER pasta press operator. 3. May have paper cups, plates, finger foods as well as a cardboard spoon with which to eat meals. 4. Follow [facility] Management of the Admitted Behavioral Health Patient policy. 5. Shower available in Zone B without restriction. 6. Personal belongings-soft items permitted at RN discretion. 7. Visitors-none at this time. 8. Activities: soft cart items approved per RN discretion. 9.? Bathroom available in Zone B without restriction. 10. Phone: limited to [facility] cordless phone at RN discretion. Due to INVOLUNTARY status, patient is being held at [facility] by the Department of Mental Health ([facility]) until 2nd certification by [facility] Psychiatrist can be performed (within 24 hours). Staff will provide de-escalation support (CPI) as needed. If patient wishes to leave [facility], staff will contact [facility] Crisis Screener ([phone]) and Network Professional ([phone]) as soon as possible. In the event of elopement, notify [place] [employer] ([phone]). Patient is currently involuntarily at [facility]. [facility] Frontline Heel Painter will continue seeking placement. Please contact the Network Professional for any needed changes to Safety Plan. Safety plan has been provided to interdepartmental care team. Patient will be transported by MD Lingo at time of discharge.
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
[2024-12-30] MEDS: Buprenorphine/Naloxone 8 mg/2 mg FILM 2 EACH SL (13:46)
--- NOTE | 2024-12-30 15:43 | W.EDPROG ---
Date of service: 12/30/24 Time of Service: 15:43 Medical Decision Making Patient here on involuntary status for decompensated schizophrenia. Pending second CERT. No reported issues on prior shift. Will continue to monitor until safe disposition found. Quality:SDOH Health Related Social Needs: No Data to Display Discharge Plan Disposition Condition: Serious Discharge Details Chief Complaint: PsychEval Clinical Impression: Paranoid delusion, Threatening behavior Primary Care Provider: Jigna Chacon ED Provider: Orlando Parham Home Meds and New Rx's Prescriptions: No Action aripiprazole [Abilify] 20 mg Tablet 30 mg PO DAILY buprenorphine-naloxone [Suboxone] 8-2 mg Film 2 film sublingual DAILY dextroamphetamine-amphetamine [Adderall] 30 mg Tablet 30 mg PO QAM dextroamphetamine-amphetamine [Adderall] 5 mg Tablet 5 mg PO QHS
[2024-12-30] MEDS: LORazepam 1 MG TAB 2 MG PO (19:44)
[2024-12-30] MEDS: QUEtiapine 25 MG TAB 100 MG PO (19:44)
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
[2024-12-31] MEDS: ARIPiprazole 15 MG TAB 30 MG PO (08:18)
[2024-12-31] MEDS: Buprenorphine/Naloxone 8 mg/2 mg FILM 2 EACH SL (08:19)
[2024-12-31 08:21] VITALS: BP 126/73; PULSE 76; RESP 19; O2SAT 96
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
[2024-12-31] MEDS: OLANZapine 10 MG TAB 20 MG PO (11:45)
--- NOTE | 2024-12-31 12:22 | W.EDPROG ---
Date of service: 12/31/24 Time of Service: 12:22 Medical Decision Making Patient is still pending placement. Patient did talk to mental health for the reassessment today, and got notably aggravated during that conversation. He began yelling, pacing, and getting very aggravated about the injustices that were happening to little girls from all the pedophiles that are in the government. We did offer 20 mg of Zyprexa to the patient and he willingly receive the medication. He rested calmly throughout the rest of the shift. Pending placement at this time involuntarily. Quality:SDOH Health Related Social Needs: No Data to Display Discharge Plan Disposition Condition: Serious Discharge Details Chief Complaint: PsychEval Clinical Impression: Paranoid delusion, Threatening behavior Primary Care Provider: Jigna Chacon ED Provider: Marcelo Camacho Home Meds and New Rx's Prescriptions: No Action aripiprazole [Abilify] 20 mg Tablet 30 mg PO DAILY buprenorphine-naloxone [Suboxone] 8-2 mg Film 2 film sublingual DAILY dextroamphetamine-amphetamine [Adderall] 30 mg Tablet 30 mg PO QAM dextroamphetamine-amphetamine [Adderall] 5 mg Tablet 5 mg PO QHS
--- NOTE | 2024-12-31 12:22 | PDOC.CMSAFE ---
Date of service: 12/31/24 Time of Service: 12:22 Care Management Safety Plan Status Status: Involuntary Reason for Wait Reason for Wait: Inpatient Admission Safety Plan Safety Plan: INVOLUNTARY FOR INPATIENT PSYCHIATRIC STABILIZATION. Safety plan has been established to meet the needs of the patient, and consideration of the care team, to adhere to patient goals, identify restrictions based on behavioral status, address nutrition, and determine allowed personal belongings, tools for hygiene and personal care. Determine level of activity including ambulation, level of supervision, visitors, and determine privileges based on behaviors and level of engagement by pt. SAFETY PLAN: 1. Will remain on SI/HI precautions. In Paper Clothes 2. Will remain in room under direct supervision of one-on-one staff at all times provided by [employer]; HALLE, CHIPS SCREEN TENDER neonatal icu coordinator. 3. May have paper cups, plates, finger foods as well as a cardboard spoon 4. Follow [facility] Management of the Admitted Behavioral Health Patient policy. 5. Comfort bath system only. 6. No personal belongings 7. Visitors: none at this time 8. Activities: at discretion of RN 9. ?Bathroom privileges with supervision 10. Phone: None at this time 11. Due to INVOLUNTARY status, patient is being held at [facility] by the Department of Mental Health ([facility]) until 2nd certification by [facility] Psychiatrist can be performed (within 24 hours). Staff will provide de-escalation support (CPI) as needed. If patient wishes to leave [facility], staff will contact [facility] Crisis Screener ([phone]) and On-Call Soyfreeze Operator ([phone]) as soon as possible. In the event of elopement, notify [place] [employer] ([phone]). Patient is currently involuntarily at [facility]. [facility] Frontline Outbound Sales Professional will continue seeking placement. Please contact the Senior Information Developer Soyfreeze Operator ([phone]) for any needed changes to Safety Plan. Safety plan has been provided to interdepartmental care team. Patient will be transported by [employer] at time of discharge.
--- NOTE | 2024-12-31 12:25 | CMPROGNOTE_ITS ---
Date of service: 12/31/24 Time of Service: 12:25 Care Management Progress Note Progress Note Text Progress Note Text: Spoke with RN today, and reviewed [facility] note. Demetris seems to be doing ok. He has not had any issues and is awaiting inpatient hospitalization. Social Determinants of Health Screening Will the Patient Participate in the Screening?: Unable to obtain
[2024-12-31] MEDS: Nicotine 2 MG GUM CH (13:03)
--- NOTE | 2024-12-31 14:20 | W.EDPROG ---
Date of service: 12/31/24 Time of Service: 14:20 Medical Decision Making Patient signed out to me pending involuntary placement for paranoid delusional behavior. Currently without new complaints. Will continue to monitor until safe disposition found Quality:SDOH Health Related Social Needs: No Data to Display Discharge Plan Disposition Condition: Serious Discharge Details Chief Complaint: PsychEval Clinical Impression: Paranoid delusion, Threatening behavior Primary Care Provider: Jigna Chacon ED Provider: Orlando Parham Home Meds and New Rx's Prescriptions: No Action aripiprazole [Abilify] 20 mg Tablet 30 mg PO DAILY buprenorphine-naloxone [Suboxone] 8-2 mg Film 2 film sublingual DAILY dextroamphetamine-amphetamine [Adderall] 30 mg Tablet 30 mg PO QAM dextroamphetamine-amphetamine [Adderall] 5 mg Tablet 5 mg PO QHS
[2024-12-31] MEDS: QUEtiapine 25 MG TAB 100 MG PO (20:40)
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
--- NOTE | 2025-01-01 07:36 | W.EDPROG ---
Date of service: 01/01/25 Time of Service: 07:36 Medical Decision Making Care assumed from outgoing provider. Patient is a 49-year-old gentleman with decompensated schizophrenia, paranoid and delusional behavior. An EE with us currently in place 2nd cert . Pending placement. Quality:[facility] Health Related Social Needs: No Data to Display Discharge Plan Disposition Condition: Serious Discharge Details Chief Complaint: PsychEval Clinical Impression: Paranoid delusion, Threatening behavior Primary Care Provider: Jigna Chacon ED Provider: Juan Carlos Yanes Home Meds and New Rx's Prescriptions: No Action aripiprazole [Abilify] 20 mg Tablet 30 mg PO DAILY buprenorphine-naloxone [Suboxone] 8-2 mg Film 2 film sublingual DAILY dextroamphetamine-amphetamine [Adderall] 30 mg Tablet 30 mg PO QAM dextroamphetamine-amphetamine [Adderall] 5 mg Tablet 5 mg PO QHS
[2025-01-01] MEDS: Buprenorphine/Naloxone 8 mg/2 mg FILM 2 EACH SL (09:40)
[2025-01-01] MEDS: ARIPiprazole 15 MG TAB 30 MG PO (09:47)
--- NOTE | 2025-01-01 11:11 | CMSP_ITS ---
Date of service: 01/01/25 Time of Service: 11:11 Care Management Safety Plan Status Status: Involuntary Reason for Wait Reason for Wait: Inpatient Admission Safety Plan Safety Plan: INVOLUNTARY FOR INPATIENT PSYCHIATRIC STABILIZATION.? Patient is appropriate in all interactions since arriving at [facility]; Pt has demonstrated appropriate coping and communication skills, has articulated his or her needs and concerns and is fully engaged during staff interactions. Safety plan has been established with patient, and care team, to adhere to patient goals, identify restrictions based on behavioral status, address nutrition, and determine allowed personal belongings, tools for hygiene and personal care. Determine level of activity including ambulation, level of supervision, visitors, and determine privileges based on behaviors and level of engagement by pt. SAFETY PLAN: 1. Will remain on suicide precautions, in paper clothes 2. Will remain in Zone B under direct supervision of one-on-one staff at all times provided by [employer]; HALLE, MOBILE HOMES REPAIRER social work supervisor. 3. May have paper cups, plates, finger foods as well as a cardboard spoon with which to eat meals. 4. Follow [facility] Management of the Admitted Behavioral Health Patient policy. 5. Shower available in Zone B without restriction. 6. Personal belongings-soft items permitted at RN discretion. 7. Visitors-none at this time. 8. Activities: soft cart items approved per RN discretion. 9.? Bathroom available in Zone B without restriction. 10. Phone: limited to [facility] cordless phone at RN discretion. Due to INVOLUNTARY status, patient is being held at [facility] by the Department of Mental Health ([facility]) until 2nd certification by [facility] Psychiatrist can be performed (within 24 hours). Staff will provide de-escalation support (CPI) as needed. If patient wishes to leave [facility], staff will contact [facility] Crisis Screener ([phone]) and Tape Weaver ([phone]) as soon as possible. In the event of elopement, notify [place] [employer] ([phone]). Patient is currently involuntarily at [facility]. [facility] Frontline Oil Extractor will continue seeking placement. Please contact the Tape Weaver for any needed changes to Safety Plan. Safety plan has been provided to interdepartmental care team. Patient will be transported by [employer] at time of discharge.
--- NOTE | 2025-01-01 11:11 | PDOC.CMSAFE ---
Date of service: 01/01/25 Time of Service: 11:11 Care Management Safety Plan Status Status: Involuntary Reason for Wait Reason for Wait: Inpatient Admission Safety Plan Safety Plan: INVOLUNTARY FOR INPATIENT PSYCHIATRIC STABILIZATION.? Patient is appropriate in all interactions since arriving at [facility]; Pt has demonstrated appropriate coping and communication skills, has articulated his or her needs and concerns and is fully engaged during staff interactions. Safety plan has been established with patient, and care team, to adhere to patient goals, identify restrictions based on behavioral status, address nutrition, and determine allowed personal belongings, tools for hygiene and personal care. Determine level of activity including ambulation, level of supervision, visitors, and determine privileges based on behaviors and level of engagement by pt. SAFETY PLAN: 1. Will remain on suicide precautions, in paper clothes 2. Will remain in Zone B under direct supervision of one-on-one staff at all times provided by [employer]; HALLE, IRON CUTTER assembler for puller over machine. 3. May have paper cups, plates, finger foods as well as a cardboard spoon with which to eat meals. 4. Follow [facility] Management of the Admitted Behavioral Health Patient policy. 5. Shower available in Zone B without restriction. 6. Personal belongings-soft items permitted at RN discretion. 7. Visitors-none at this time. 8. Activities: soft cart items approved per RN discretion. 9.? Bathroom available in Zone B without restriction. 10. Phone: limited to [facility] cordless phone at RN discretion. Due to INVOLUNTARY status, patient is being held at [facility] by the Department of Mental Health ([facility]) until 2nd certification by [facility] Psychiatrist can be performed (within 24 hours). Staff will provide de-escalation support (CPI) as needed. If patient wishes to leave [facility], staff will contact [facility] Crisis Screener ([phone]) and Senior Art Director ([phone]) as soon as possible. In the event of elopement, notify [place] [employer] ([phone]). Patient is currently involuntarily at [facility]. [facility] Frontline Marketer will continue seeking placement. Please contact the Senior Art Director for any needed changes to Safety Plan. Safety plan has been provided to interdepartmental care team. Patient will be transported by [employer] at time of discharge.
[2025-01-01] MEDS: Nicotine 4 MG GUM CH ×4 (13:08→20:20)
--- NOTE | 2025-01-01 13:36 | CMPROGNOTE_ITS ---
Date of service: 01/01/25 Time of Service: 13:36 Care Management Progress Note Progress Note Text Progress Note Text: CM met with RN, and spoke with HS worker on the phone regarding Demetris. There are no changes noted today. Demetris is awaiting inpatient placement at a mental health facility. Discharge Plan: Demetris will remain in Zone B until placement is found. He will abide by his safety plan. He will continue to have [facility] assessment twice daily. CM will continue to follow. MH Services (Omit if N/A) Current MH Services: [facility] Reason for Wait: Inpatient Admission Social Determinants of Health Screening Will the Patient Participate in the Screening?: Unable to obtain
--- NOTE | 2025-01-01 14:24 | MHPN_ITS ---
Date of service: 01/01/25 Time of Service: 10:40 Mental Health Emergency Note Release [facility] release signed:: Yes Reason for Visit The client is known to [facility] in a limited capacity as he was assessed in October for a mobile crisis assessment after his doctor shared concerns for psychosis. At the time of the mobile crisis assessment the client was referred for outpatient services, however he did not follow through with appointments. Last 12/28 the clients PCP Jigna Chcaon from [facility] outreached with concerns for the clients as the client has become increasingly paranoid and was making threats to his . At that time witness statements were compiled and a MH warrant was written. The client was brought to [facility] ED on 12/29 by VSP. The client is currently at [facility] on involuntary status. The 2nd cert passed on 12/30. This resume writer is seeing the client via telehealth for the first daily re-assessment. In the last 2 weeks has the pt presented for ES prior to today?: No Impression The client is a 49 y/o male that resides in [facility] with his . Screening tools were not completed as they were completed 3 days ago during initial assessment. Client initially presents calm and cooperative, however as the re-assessment continues the client appears to get agitated as evidenced by pacing of the room and refusal to engage with this resume writer. The client continues to report that what was reported about him is in accurate and that his is having an affair and taking all of his money out of the bank. The client reports that he is eating and sleeping well and denies SI/HI. It is reported to this resume writer from [facility] ED staff that each time the client is zoomed he requires some medication to assist him as he gets significantly heightened. Plan/Disposition Recommended Disposition: Hospitalization facilities contacted. Plan: The client will remain at [facility] ED on EE status pending placement in an inpatient facility. The client will be re-assessed 2x daily until placement is secured or the clients acuity level decreases and he is able to be safety planned back to the community. [facility] has declined the client due to acuity level, however this resume writer will outreach to the acute care nurse from [facility] tomorrow to assist for amelia schmitz. Person reported agreement to plan: No Reports/communication Outcome discussed with: ED/Personnel (Verbal given to zone b staff as well as [facility] acute care nurse Lora. )
--- NOTE | 2025-01-01 14:24 | PDOC.MHPN2 ---
Date of service: 01/01/25 Time of Service: 10:40 Mental Health Emergency Note Release [facility] release signed:: Yes Reason for Visit The client is known to [facility] in a limited capacity as he was assessed in October for a mobile crisis assessment after his doctor shared concerns for psychosis. At the time of the mobile crisis assessment the client was referred for outpatient services, however he did not follow through with appointments. Last 12/28 the clients PCP Jigna Chacon from [facility] outreached with concerns for the clients as the client has become increasingly paranoid and was making threats to his . At that time witness statements were compiled and a MH warrant was written. The client was brought to [facility] ED on 12/29 by VSP. The client is currently at [facility] on involuntary status. The 2nd cert passed on 12/30. This conventional mortgage underwriter is seeing the client via telehealth for the first daily re-assessment. In the last 2 weeks has the pt presented for ES prior to today?: No Impression The client is a 49 y/o male that resides in [facility] with his . Screening tools were not completed as they were completed 3 days ago during initial assessment. Client initially presents calm and cooperative, however as the re-assessment continues the client appears to get agitated as evidenced by pacing of the room and refusal to engage with this conventional mortgage underwriter. The client continues to report that what was reported about him is in accurate and that his is having an affair and taking all of his money out of the bank. The client reports that he is eating and sleeping well and denies SI/HI. It is reported to this conventional mortgage underwriter from [facility] ED staff that each time the client is zoomed he requires some medication to assist him as he gets significantly heightened. Plan/Disposition Recommended Disposition: Hospitalization facilities contacted. Plan: The client will remain at [facility] ED on EE status pending placement in an inpatient facility. The client will be re-assessed 2x daily until placement is secured or the clients acuity level decreases and he is able to be safety planned back to the community. [facility] has declined the client due to acuity level, however this conventional mortgage underwriter will outreach to the healthcare specialist from [facility] tomorrow to assist for placement. Person reported agreement to plan: No Reports/communication Outcome discussed with: ED/Personnel (Verbal given to zone b staff as well as [facility] healthcare specialist Lora. )
--- NOTE | 2025-01-01 17:07 | W.EDPROG ---
Date of service: 01/01/25 Time of Service: 17:07 Medical Decision Making Patient on involuntary status for paranoid delusions, no reported issues on prior shift and currently without new acute complaints. Will continue to monitor until safe disposition found Quality:SDOH Health Related Social Needs: No Data to Display Discharge Plan Disposition Condition: Serious Discharge Details Chief Complaint: PsychEval Clinical Impression: Paranoid delusion, Threatening behavior Primary Care Provider: Jigna Chacon ED Provider: Orlando Parahm Home Meds and New Rx's Prescriptions: No Action aripiprazole [Abilify] 20 mg Tablet 30 mg PO DAILY buprenorphine-naloxone [Suboxone] 8-2 mg Film 2 film sublingual DAILY dextroamphetamine-amphetamine [Adderall] 30 mg Tablet 30 mg PO QAM dextroamphetamine-amphetamine [Adderall] 5 mg Tablet 5 mg PO QHS
[2025-01-01] MEDS: QUEtiapine 25 MG TAB 100 MG PO (19:41)
--- NOTE | 2025-01-01 23:02 | PDOC.MHPN2 ---
Date of service: 01/01/25 Time of Service: 20:13 Mental Health Emergency Note Release [facility] release signed:: Yes Reason for Visit Demetris is at [facility] on a mental health warrant due to concerns of his mental health. In the last 2 weeks has the pt presented for ES prior to today?: Unknown Client Information Well Housed: Yes Non Suicidal Self Injury Current: No History: No Safety Risk/Harm to Self or Others Current Ideation to Harm Self or Others: No Risk: Does risk to harm exist?: No Risk: N/A Duty to warn indicated: No Asssessment/Mental Status Appearance: Unremarkable Attitude: Cooperative Behavior: Unremarkable Speech: Normal Affect: Cogruent with mood Mood: Stressed and Anxious Thought process: Goal directed Delusions: No evidence Attention: Unremarkable Perception: Not impaired Orientation: Fully orientated Memory: Intact Insight: Poor Judgement: Poor Neurovegetative Symptoms Sleep: No change Appetitie: No change Interests: No change Energy: No change Libido: Not applicable Substance Use: Do you use nicotine?: No Have you used substances in the last 7 days?: No Additional Issues: Assaultive/Threatening Behavior: No Medical Concerns: No Client engaged in active self harm w/weapon: No Threatening to run away: No Child reported abuse/neglect: No Voluntarily presenting for services: No Domestic violence is a concern: No Extreme Psychosis or extreme behavior is present: Yes Impression Demetris is currently at [facility] on an involuntary hold due to concerns for his mental health. Demetris presents to this policy writer sitting in his room, in paper scrubs. Demetris reports he is doing okay. Demetris continued to say he is okay, doing okay, everything is okay, he is confused why he is in the hospital and reports that the only reason he is there is due to yelling at a doctor. Demetris did not state what caused this or why he acted that way but did report he had nothing else to talk about. Demetris was brief with this policy writer, but pleasant, calm, and respectful. Plan/Disposition Recommended Disposition: Hospitalization facilities contacted. Plan: Demetris will remain at [facility] on a MH Warrant until placement can be found Person reported agreement to plan: Yes Reports/communication Outcome discussed with: ED/Personnel
--- NOTE | 2025-01-02 06:43 | W.EDPROG ---
Date of service: 01/01/25 Time of Service: 22:15 Medical Decision Making This patient was signed out to me. Please see previous notes for H&P and initial eval. In brief, 49yo M here with paranoia, medically cleared, EEd, 2nd cert done, pending placement. No acute events overnight. Will be signed out to oncoming physician, plan remains as above. Quality:SDOH Health Related Social Needs: No Data to Display Discharge Plan Disposition Condition: Serious Discharge Details Chief Complaint: PsychEval Clinical Impression: Paranoid delusion, Threatening behavior Primary Care Provider: Jigna Chacon ED Provider: Justina Wade Home Meds and New Rx's Prescriptions: No Action aripiprazole [Abilify] 20 mg Tablet 30 mg PO DAILY buprenorphine-naloxone [Suboxone] 8-2 mg Film 2 film sublingual DAILY dextroamphetamine-amphetamine [Adderall] 30 mg Tablet 30 mg PO QAM dextroamphetamine-amphetamine [Adderall] 5 mg Tablet 5 mg PO QHS
--- NOTE | 2025-01-02 07:50 | W.EDPROG ---
Date of service: 01/02/25 Time of Service: 07:50 Medical Decision Making Care assumed from outgoing provider. Patient is a 49-year-old gentleman currently on an involuntary hold pending placement. Did have some minor agitation today and as needed medications have been ordered, but no significant outbursts. Quality:[facility] Health Related Social Needs: No Data to Display Discharge Plan Disposition Condition: Serious Discharge Details Chief Complaint: PsychEval Clinical Impression: Paranoid delusion, Threatening behavior Primary Care Provider: Jigna Chacon ED Provider: Juan Carlos Yanes Home Meds and New Rx's Prescriptions: No Action aripiprazole [Abilify] 20 mg Tablet 30 mg PO DAILY buprenorphine-naloxone [Suboxone] 8-2 mg Film 2 film sublingual DAILY dextroamphetamine-amphetamine [Adderall] 30 mg Tablet 30 mg PO QAM dextroamphetamine-amphetamine [Adderall] 5 mg Tablet 5 mg PO QHS
[2025-01-02] MEDS: Buprenorphine/Naloxone 8 mg/2 mg FILM 2 EACH SL (08:40)
[2025-01-02] MEDS: ARIPiprazole 15 MG TAB 30 MG PO (08:41)
[2025-01-02 10:01] VITALS: BP 118/69; PULSE 71; RESP 16; O2SAT 92
[2025-01-02] MEDS: Nicotine 4 MG GUM CH (10:07)
--- NOTE | 2025-01-02 12:16 | MHPN_ITS ---
Date of service: 01/02/25 Time of Service: 12:19 Mental Health Emergency Note Release [facility] release signed:: Yes Reason for Visit The client is known to [facility] in a limited capacity as he was assessed in October for a mobile crisis assessment after his doctor shared concerns for psychosis. At the time of the mobile crisis assessment the client was referred for outpatient services, however he did not follow through with appointments. Last 12/28 the clients PCP Jigna Chacon from [facility] outreached with concerns for the clients as the client has become increasingly paranoid and was making threats to his . At that time witness statements were compiled and a MH warrant was written. The client was brought to [facility] ED on 12/29 by VSP. The client is currently at [facility] on involuntary status. The 2nd cert passed on 12/30. This assessment was completed face to face at bedside. In the last 2 weeks has the pt presented for ES prior to today?: Unknown Impression The client is a 49 y/o male that resides in [place] with his . Screening tools were not completed as they were completed during the initial assessment. The client is playing with a deck of cards standing up when this clinician arrived. He stated he is good and I want to go home. He makes fair eye contact and was cooperative during the assessment however, as this clinician was leaving the room he started to become increasingly agitated as evidenced by yelling, demanding his clothes and to speak to a traffic maintenance officer. He was so disruptive that when this clinician was assessing another client that client was becoming deregulated. The client was observed during the assessment to be pacing and eye contact was moderate. He rambles on about the president and his being the reason he is in his current situation. They think I am nuts. He speaks about President Trchau killing young women he needs to be investigated. The client reported that he slept like a baby and his appetite is awesome. At no time did this clinician feel unsafe directly however, his behaviors and thought process continue to put him and his in danger as well as the community. Plan/Disposition Recommended Disposition: Hospitalization facilities contacted. Plan: The client will remain at [facility] pending acceptance and bed availability in a psychiatric facility. He will be re-assessed daily until such time for appropriateness of care. This clinician outreached to [facility]'s director of healthcare systems who reported that the client is in the top 2 of next in line for placement. Person reported agreement to plan: No Reports/communication Outcome discussed with: ED/Personnel
--- NOTE | 2025-01-02 14:03 | CMSP_ITS ---
Date of service: 01/02/25 Time of Service: 14:03 Care Management Safety Plan Status Status: Involuntary Reason for Wait Reason for Wait: Inpatient Admission Safety Plan Safety Plan: INVOLUNTARY FOR INPATIENT PSYCHIATRIC STABILIZATION.? Patient is appropriate in all interactions since arriving at [facility]; Pt has demonstrated appropriate coping and communication skills, has articulated his or her needs and concerns and is fully engaged during staff interactions. Safety plan has been established with patient, and care team, to adhere to patient goals, identify restrictions based on behavioral status, address nutrition, and determine allowed personal belongings, tools for hygiene and personal care. Determine level of activity including ambulation, level of supervision, visitors, and determine privileges based on behaviors and level of engagement by pt. SAFETY PLAN: 1. Will remain on suicide precautions, in paper clothes 2. Will remain in Zone B under direct supervision of one-on-one staff at all times provided by [employer]; HALLE, NURSES' REGISTRY DIRECTOR networking engineer. 3. May have paper cups, plates, finger foods as well as a cardboard spoon with which to eat meals. 4. Follow [facility] Management of the Admitted Behavioral Health Patient policy. 5. Shower available in Zone B without restriction. 6. Personal belongings-soft items permitted at RN discretion. 7. Visitors-none at this time. 8. Activities: soft cart items approved per RN discretion. TV permitted; staff to hold remote and provide suggestions for content to reduce/prevent agitation. 9.? Bathroom available in Zone B without restriction. 10. Phone: limited to [facility] cordless phone at RN discretion. Due to INVOLUNTARY status, patient is being held at [facility] by the Department of Mental Health ([facility]) until 2nd certification by [facility] Psychiatrist can be performed (within 24 hours). Staff will provide de-escalation support (CPI) as needed. If patient wishes to leave [facility], staff will contact [facility] Crisis Screener ([phone]) and Foreign Policy Officer ([phone]) as soon as possible. In the event of elopement, notify [place] [employer] ([phone]). Patient is currently involuntarily at [facility]. [facility] Frontline Flap Curer will continue seeking placement. Please contact the Foreign Policy Officer for any needed changes to Safety Plan. Safety plan has been provided to interdepartmental care team. Patient will be transported by [facility] at time of discharge.
--- NOTE | 2025-01-02 15:14 | CMPROGNOTE_ITS ---
Date of service: 01/02/25 Time of Service: 15:14 Care Management Progress Note Progress Note Text Progress Note Text: CM huddled with staff regarding Demetris's plan of care. At the time of the huddle, Demetris appeared to have increased agitation while talking with another patient in zone B; staff supported both patients by suggesting that the other return to his room. Per RN, he has been increasingly agitated and delusional today, especially after being assessed by [facility]. He has expressed the desire to return home, and reported to [facility] that he has no memory of threatening his . Per report, he has asked to talk with his equipment operating engineer; CM advised that he has a right to legal [place] and stated that he may call [place] legal instructor at any time. Per [facility], Demetris was assessed by an [facility] clinician in October 2024, and his presentation is significantly worse at this time. He completed intake with [facility] in October, but did not follow through with appointments which were made at that time. [facility] stated that [facility] was contacted, and they were informed that Demetris is a high priority (#1/#2) for placement. Demetris is currently involuntary, being held for inpatient psychiatric treatment. Safety plan in place; no changes at this time. CM will continue to follow. Social Determinants of Health Screening Will the Patient Participate in the Screening?: Unable to obtain
--- NOTE | 2025-01-02 15:14 | PDOC.CMPRO ---
Date of service: 01/02/25 Time of Service: 15:14 Care Management Progress Note Progress Note Text Progress Note Text: CM huddled with staff regarding Demetris's plan of care. At the time of the huddle, Demetris appeared to have increased agitation while talking with another patient in zone B; staff supported both patients by suggesting that the other return to his room. Per RN, he has been increasingly agitated and delusional today, especially after being assessed by [facility]. He has expressed the desire to return home, and reported to [facility] that he has no memory of threatening his . Per report, he has asked to talk with his cryogenics engineer; CM advised that he has a right to legal [place], and stated that he may call [place] family law legal assistant at any time. Per [facility], Demetris was assessed by an [facility] clinician in October 2024, and his presentation is significantly worse at this time. He completed intake with [facility] in October, but did not follow through with appointments which were made at that time. [facility] stated that [facility] was contacted, and they were informed that Demetris is a high priority (#1/#2) for placement. Demetris is currently involuntary, being held for inpatient psychiatric treatment. Safety plan in place; no changes at this time. CM will continue to follow. Social Determinants of Health Screening Will the Patient Participate in the Screening?: Unable to obtain
--- NOTE | 2025-01-02 16:23 | W.EDPROG ---
Date of service: 01/02/25 Time of Service: 16:33 Medical Decision Making I received signout on this 49-year-old male. EE with second cert in place. Pending placement. Had some mild increasing agitation today, but is redirectable. As needed medications have been ordered. Will update documentation as clinically warranted and signed patient out to overnight provider. 10:45 PM No active behavioral issues. I signed patient out to Dr. Wade. Quality:SDOH Health Related Social Needs: No Data to Display Discharge Plan Disposition Condition: Serious Discharge Details Chief Complaint: PsychEval Clinical Impression: Paranoid delusion, Threatening behavior Primary Care Provider: Jigna Chacon ED Provider: Orlando Blue Home Meds and New Rx's Prescriptions: No Action aripiprazole [Abilify] 20 mg Tablet 30 mg PO DAILY buprenorphine-naloxone [Suboxone] 8-2 mg Film 2 film sublingual DAILY dextroamphetamine-amphetamine [Adderall] 30 mg Tablet 30 mg PO QAM dextroamphetamine-amphetamine [Adderall] 5 mg Tablet 5 mg PO QHS
[2025-01-02] MEDS: QUEtiapine 25 MG TAB 100 MG PO (19:40)
--- NOTE | 2025-01-02 22:26 | PDOC.MHPN2 ---
Date of service: 01/02/25 Time of Service: 18:30 Mental Health Emergency Note Release [facility] release signed:: Yes Reason for Visit Demetris is currently at [facility] on a MH Warrant. Demetris is previously known to [facility] and this health underwriter. Demetris will remain at [facility] until inpatient placement can be secured. In the last 2 weeks has the pt presented for ES prior to today?: Unknown Client Information Well Housed: Yes Non Suicidal Self Injury Current: No History: No Safety Risk/Harm to Self or Others Current Ideation to Harm Self or Others: No Risk: Does risk to harm exist?: No Risk: N/A Duty to warn indicated: No Asssessment/Mental Status Appearance: Disheveled Attitude: Passive and Guarded Behavior: Unremarkable Speech: Normal Affect: Cogruent with mood Mood: Stressed and Anxious Thought process: Unremarkable Hallucinations: No evidence Delusions: No evidence Attention: Unremarkable Perception: Not impaired Orientation: Fully orientated Memory: Intact Insight: Poor Judgement: Poor Neurovegetative Symptoms Sleep: No change Appetitie: No change Interests: No change Energy: No change Libido: Not applicable Substance Use: Do you use nicotine?: No Have you used substances in the last 7 days?: No Additional Issues: Assaultive/Threatening Behavior: No Medical Concerns: No Client engaged in active self harm w/weapon: No Threatening to run away: No Child reported abuse/neglect: No Voluntarily presenting for services: No Domestic violence is a concern: No Extreme Psychosis or extreme behavior is present: Yes Impression Demetris presents to this health underwriter pacing in his room, he sits on his bed once the assessment begins. Demetris presents in his paper scrubs, reports he is fine, his day was fine. Demetris reports he has not done much other than watch TV as there are not many things to do while in the hospital. Demetris reports good sleep, good appetite, he has taken his medications. Demetris denies SI, HI and NSSI to this health underwriter. Demetris reports he does not need anything and has nothing else to talk about. Plan/Disposition Recommended Disposition: Hospitalization facilities contacted. Plan: Demetris will remain at [facility] on a MH Warrant until he is placed at an inpatient facility. Person reported agreement to plan: Yes Reports/communication Outcome discussed with: ED/Personnel
--- NOTE | 2025-01-03 06:49 | W.EDPROG ---
Date of service: 01/02/25 Time of Service: 23:30 Medical Decision Making This patient was signed out to me. Please see previous notes for HPI and initial eval. In brief, 49yo M, paranoia, EEd with 2nd cert done, medically cleared pending placement. No acute events overnight. Will be signed out to oncoming physician, plan remains as above. Quality:SDOH Health Related Social Needs: No Data to Display Discharge Plan Disposition Condition: Serious Discharge Details Chief Complaint: PsychEval Clinical Impression: Paranoid delusion, Threatening behavior Primary Care Provider: Jigna Chacon ED Provider: Justina Wade Home Meds and New Rx's Prescriptions: No Action aripiprazole [Abilify] 20 mg Tablet 30 mg PO DAILY buprenorphine-naloxone [Suboxone] 8-2 mg Film 2 film sublingual DAILY dextroamphetamine-amphetamine [Adderall] 30 mg Tablet 30 mg PO QAM dextroamphetamine-amphetamine [Adderall] 5 mg Tablet 5 mg PO QHS
[2025-01-03 08:31] VITALS: BP 132/79; PULSE 72; RESP 19; O2SAT 94
[2025-01-03] MEDS: ARIPiprazole 15 MG TAB 30 MG PO (08:37)
[2025-01-03] MEDS: Buprenorphine/Naloxone 8 mg/2 mg FILM 2 EACH SL (08:37)
--- NOTE | 2025-01-03 09:47 | CMSP_ITS ---
Date of service: 01/03/25 Time of Service: 09:47 Care Management Safety Plan Status Status: Involuntary Reason for Wait Reason for Wait: Inpatient Admission Safety Plan Safety Plan: INVOLUNTARY FOR INPATIENT PSYCHIATRIC STABILIZATION.? Patient is appropriate in all interactions since arriving at [facility]; Pt has demonstrated appropriate coping and communication skills, has articulated his or her needs and concerns and is fully engaged during staff interactions. Safety plan has been established with patient, and care team, to adhere to patient goals, identify restrictions based on behavioral status, address nutrition, and determine allowed personal belongings, tools for hygiene and personal care. Determine level of activity including ambulation, level of supervision, visitors, and determine privileges based on behaviors and level of engagement by pt. SAFETY PLAN: 1. Will remain on suicide precautions, in paper clothes 2. Will remain in Zone B under direct supervision of one-on-one staff at all times provided by [employer]; HALLE, SUPERVISOR OF GUIDANCE AND TESTING inspector optical instrument. 3. May have paper cups, plates, finger foods as well as a cardboard spoon with which to eat meals. 4. Follow [facility] Management of the Admitted Behavioral Health Patient policy. 5. Shower available in Zone B without restriction. 6. Personal belongings-soft items permitted at RN discretion. 7. Visitors-none at this time. 8. Activities: soft cart items approved per RN discretion. TV permitted; staff to hold remote and provide suggestions for content to reduce/prevent agitation. 9.? Bathroom available in Zone B without restriction. 10. Phone: limited to [facility] cordless phone at RN discretion. Due to INVOLUNTARY status, patient is being held at [facility] by the Department of Mental Health ([facility]) until 2nd certification by [facility] Psychiatrist can be performed (within 24 hours). Staff will provide de-escalation support (CPI) as needed. If patient wishes to leave [facility], staff will contact [facility] Crisis Screener ([phone]) and Sagger Filler ([phone]) as soon as possible. In the event of elopement, notify [place] [employer] ([phone]). Patient is currently involuntarily at [facility]. [facility] Frontline Scheduling Clerk will continue seeking placement. Please contact the Sagger Filler for any needed changes to Safety Plan. Safety plan has been provided to interdepartmental care team. Patient will be transported by [facility] at time of discharge.
--- NOTE | 2025-01-03 09:47 | PDOC.CMSAFE ---
Date of service: 01/03/25 Time of Service: 09:47 Care Management Safety Plan Status Status: Involuntary Reason for Wait Reason for Wait: Inpatient Admission Safety Plan Safety Plan: INVOLUNTARY FOR INPATIENT PSYCHIATRIC STABILIZATION.? Patient is appropriate in all interactions since arriving at [facility]; Pt has demonstrated appropriate coping and communication skills, has articulated his or her needs and concerns and is fully engaged during staff interactions. Safety plan has been established with patient, and care team, to adhere to patient goals, identify restrictions based on behavioral status, address nutrition, and determine allowed personal belongings, tools for hygiene and personal care. Determine level of activity including ambulation, level of supervision, visitors, and determine privileges based on behaviors and level of engagement by pt. SAFETY PLAN: 1. Will remain on suicide precautions, in paper clothes 2. Will remain in Zone B under direct supervision of one-on-one staff at all times provided by [employer]; HALLE, RETAIL GENERAL MANAGER director of business applications. 3. May have paper cups, plates, finger foods as well as a cardboard spoon with which to eat meals. 4. Follow [facility] Management of the Admitted Behavioral Health Patient policy. 5. Shower available in Zone B without restriction. 6. Personal belongings-soft items permitted at RN discretion. 7. Visitors-none at this time. 8. Activities: soft cart items approved per RN discretion. TV permitted; staff to hold remote and provide suggestions for content to reduce/prevent agitation. 9.? Bathroom available in Zone B without restriction. 10. Phone: limited to [facility] cordless phone at RN discretion. Due to INVOLUNTARY status, patient is being held at [facility] by the Department of Mental Health ([facility]) until 2nd certification by [facility] Psychiatrist can be performed (within 24 hours). Staff will provide de-escalation support (CPI) as needed. If patient wishes to leave [facility], staff will contact [facility] Crisis Screener ([phone]) and Laborer Driver ([phone]) as soon as possible. In the event of elopement, notify [place] [employer] ([phone]). Patient is currently involuntarily at [facility]. [facility] Frontline Stripper Latex will continue seeking placement. Please contact the Laborer Driver for any needed changes to Safety Plan. Safety plan has been provided to interdepartmental care team. Patient will be transported by [facility] at time of discharge.
--- NOTE | 2025-01-03 13:52 | NUR.NOTE ---
Nursing Note: D/T PT showing approp behavior all day this RN let PT speak on the phone with who called in to facility. Because of past behavior with this RN asked patient to only speak on the phone with her for 5 mins. At 4 mins this nurse heard pt yell this is bullshit PT was reminded of the 5 min phone call limit and he handed over the phone without any issues. PT also spoke with legal rep with no issues.
--- NOTE | 2025-01-03 15:32 | ED.PROG_ITS ---
Date of service: 01/03/25 Time of Service: 15:32 Medical Decision Making Patient was signed out to me by my colleague pending placement. He has been accepted at [facility]. I spoke with nurse practitioner Ethan Hernandez, who accepts the patient for transfer. I have extensively reviewed the treatment plan with the patient. I have addressed all patient concerns at this time. I have also discussed the plan with the admitting physician and they agree with the current assessment and plan and have agreed to assume responsibility for the patient. All parties demonstrate verbal understanding and agreement with our assessment and plan at this time. The documentation in this chart was dictated using [employer] dictation software. Please excuse any dictation errors. Quality:SDOH Health Related Social Needs: No Data to Display Discharge Plan Disposition Patient Disposition: Psychiatric Hospital/Unit Specific Psychiatric Facility: [facility] Condition: Serious Discharge Details Chief Complaint: PsychEval Clinical Impression: Paranoid delusion, Threatening behavior Primary Care Provider: Jigna Chacon ED Provider: Marcelo Camacho Home Meds and New Rx's Prescriptions: No Action aripiprazole [Abilify] 20 mg Tablet 30 mg PO DAILY buprenorphine-naloxone [Suboxone] 8-2 mg Film 2 film sublingual DAILY dextroamphetamine-amphetamine [Adderall] 30 mg Tablet 30 mg PO QAM dextroamphetamine-amphetamine [Adderall] 5 mg Tablet 5 mg PO QHS
--- NOTE | 2025-01-03 16:39 | PDOC.CMPRO ---
Date of service: 01/03/25 Time of Service: 16:39 Care Management Progress Note Progress Note Text Progress Note Text: CM huddled with staff regarding Demetris's plan of care. During the huddle, he was playing cards with another patient. Per RN, he has been doing well today, and is interacting with staff appropriately, and is taking medications as prescribed. Per [facility], [facility] is considering him for admission today, pending bed availability. [facility], and transport was arranged through [facility] HALINA will continue to follow. Social Determinants of Health Screening Will the Patient Participate in the Screening?: Unable to obtain
== END 2025-01-03 17:15 ==
PROVIDERS: Student in an Organized Health Care Education/Training Program; Emergency Provider Student in an Organized Health Care Education/Training Program; PCP Family Medicine
DX: F20.0 Paranoid schizophrenia (principal); R45.5 Hostility; F11.20 Opioid dependence, uncomplicated
CPT/HCPCS: 00123; 80053; 80307; 99285; 80320; 80329; 81003; 81015; 84443; 85025

== ENCOUNTER 2025-02-01 15:14 | Outpatient (REF) | payer MEDICAID, SELFPAY ==
[2025-02-01 22:12] LABS: Hemoglobin A1C 6.1 % (<5.7)
== END 2025-02-01 15:15 | disposition home or self-care (01) ==
LOC: NCHCN 15:14
PROVIDERS: PCP Family Medicine; Visit Provider Family Medicine
DX: R73.03 Prediabetes (principal)
CPT/HCPCS: 83036

== ENCOUNTER 2025-03-22 17:10 | Emergency (ER) | payer MEDICAID, SELFPAY ==
[2025-03-22 17:11] VITALS: BP 155/98; PULSE 93; RESP 16; TEMP 36.5; O2SAT 95
[2025-03-22 17:45] LABS: Abs Immature Grans 0.02 10^3/uL (0.0-0.06); Absolute Basophil Count 0.04 10^3/uL (0.0-0.2); Absolute Eosinophil Count 0.31 10^3/uL (0.0-0.7); Absolute Lymphocyte Count 1.63 10^3/uL (1.2-3.4); Absolute Monocyte Count 0.57 10^3/uL (0.1-0.8); Absolute Neutrophil Count 5.21 10^3/uL (1.2-6.7); Basophils % 0.5 %; HCT 45.6 % (40.0-50.0); HGB 14.9 g/dL (13.5-17.5); Immature Grans % 0.3 %; MCHC 32.7 % (32.0-36.0); MCV 86 fL (80-95); MPV 9.1 fL (8.0-11.0); Monocytes % 7.3 %; Neutrophils % 66.9 %; Platelet Count 251 10^3/uL (130-400); RBC 5.32 10^6/uL (4.36-5.78); RDW 12.9 % (11.8-14.1); RDW-SD 39.8 fL; WBC 7.78 10^3/uL (4.4-10.8)
[2025-03-22] MEDS: ARIPiprazole 15 MG TAB 30 MG PO (17:59)
[2025-03-22] MEDS: metFORMIN 500 MG TAB PO (18:16)
[2025-03-22] MEDS: risperiDONE 1 MG TAB PO (18:16)
[2025-03-22 18:17] LABS: *AMPHETAMINES SCREEN URINE Negative (Negative); *BARBITURATES SCREEN URINE Negative (Negative); *BENZODIAZEPINES SCREEN URINE Negative (Negative); Cannabinoids THC Negative (Negative); Cocaine Screen,Urine Positive (Negative); METHADONE URINE SCREEN Negative (Negative); OPIATES URINE SCREEN Negative (Negative)
[2025-03-22 18:18] LABS: Salicylate < 2.8 mg/dL (<2.8)
[2025-03-22 18:21] LABS: Tricyclic Antidepressants Negative (Negative)
[2025-03-22 18:22] LABS: Acetaminophen < 2 ug/mL (10-30)
[2025-03-22 18:39] LABS: ALT 26 U/L (16-63); AST 21 U/L (15-37); Albumin 3.7 g/dL (3.4-5.0); Alkaline Phosphatase 57 U/L (46-116); Anion Gap 4.6 mmol/L (3-11); BUN 21 mg/dL (7-18); Bilirubin, Total 0.3 mg/dL (0.2-1.0); CO2 32.4 mmol/L (21.0-32.0); CREATININE 1.1 mg/dL (0.70-1.30); Calcium 9.6 mg/dL (8.5-10.1); Chloride 103 mmol/L (98-107); Estimated GFR 83.32 (mL/min/1.73m2); Glucose 118 mg/dL (74-106); Potassium 3.7 mmol/L (3.5-5.1); Sodium 140 mmol/L (136-145); TSH (W/Ref FT4) 2.35 uIU/mL (0.36-3.74); Total Protein 7.6 g/dL (6.4-8.2)
[2025-03-22 18:41] LABS: ETHANOL BLOOD < 3.0 mg/dL (<10)
[2025-03-22] MEDS: Nicotine 4 MG GUM CH (18:43)
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
[2025-03-23] MEDS: ARIPiprazole 15 MG TAB 30 MG PO (08:08)
[2025-03-23] MEDS: metFORMIN 500 MG TAB PO ×2 (08:08→15:43)
[2025-03-23] MEDS: risperiDONE 0.5 MG TAB PO (08:09)
[2025-03-23] MEDS: Buprenorphine/Naloxone 8 mg/2 mg FILM 2 EACH SL (08:09)
[2025-03-23 08:41] VITALS: BP 134/78; PULSE 86; RESP 18; TEMP 36.5; O2SAT 97
[2025-03-23] MEDS: Nicotine 4 MG GUM CH ×5 (09:47→19:39)
--- NOTE | 2025-03-23 11:55 | PDOC.CMSAFE ---
Documented by User: Candace Stauffer 03/23/25 11:55 Date of service: 03/23/25 Time of Service: 11:55 Care Management Safety Plan Status Status: Involuntary Reason for Wait Reason for Wait: Inpatient Admission Safety Plan Safety Plan: INVOLUNTARY FOR INPATIENT PSYCHIATRIC STABILIZATION. Safety plan has been established to meet the needs of the patient, and consideration of the care team, to adhere to patient goals, identify restrictions based on behavioral status, address nutrition, and determine allowed personal belongings, tools for hygiene and personal care. Determine level of activity including ambulation, level of supervision, visitors, and determine privileges based on behaviors and level of engagement by pt. SAFETY PLAN: 1. Will remain on SI/HI precautions. In Paper Clothes 2. Will remain in room under direct supervision of one-on-one staff at all times provided by [employer]; HALLE, TESTING DIRECTOR wire brush operator. 3. May have paper cups, plates, finger foods as well as a cardboard spoon 4. Follow [facility] Management of the Admitted Behavioral Health Patient policy. 5. Comfort bath system only. 6. No personal belongings 7. Visitors: none at this time. 8. Activities: soft cart items approved per RN discretion. 9. ?Bathroom privileges with supervision 10. Phone: None at this time 11. Due to INVOLUNTARY status, patient is being held at [facility] by the Department of Mental Health ([facility]) until 2nd certification by [facility] Psychiatrist can be performed (within 24 hours). Staff will provide de-escalation support (CPI) as needed. If patient wishes to leave [facility], staff will contact [facility] Crisis Screener ([phone]) and On-Call Policy Adviser ([phone]) as soon as possible. In the event of elopement, notify [place] [employer] ([phone]). Patient is currently involuntarily at [facility]. [facility] Frontline Machine Shop Inspector will continue seeking placement. Please contact the Store Clerk Policy Adviser ([phone]) for any needed changes to Safety Plan. Safety plan has been provided to interdepartmental care team. Patient will be transported by [employer] at time of discharge. Documented by User: Briseyda Barillas 03/23/25 15:08 Care Management Safety Plan Safety Plan Safety Plan: INVOLUNTARY FOR INPATIENT PSYCHIATRIC STABILIZATION.? Patient is appropriate in all interactions since arriving at [facility]; Pt has demonstrated appropriate coping and communication skills, has articulated his or her needs and concerns and is fully engaged during staff interactions. Safety plan has been established with patient, and care team, to adhere to patient goals, identify restrictions based on behavioral status, address nutrition, and determine allowed personal belongings, tools for hygiene and personal care. Determine level of activity including ambulation, level of supervision, visitors, and determine privileges based on behaviors and level of engagement by pt. SAFETY PLAN: 1. Will remain on suicide precautions, in paper clothes 2. Will remain in Zone B under direct supervision of one-on-one staff at all times provided by [employer]; HALLE, TESTING DIRECTOR wire brush operator. 3. May have paper cups, plates, finger foods as well as a cardboard spoon with which to eat meals. 4. Follow [facility] Management of the Admitted Behavioral Health Patient policy. 5. Shower available in Zone B without restriction. 6. Personal belongings-soft items permitted at RN discretion. 7. Visitors-none at this time. 8. Activities: soft cart items approved per RN discretion. 9.? Bathroom available in Zone B without restriction. 10. Phone: limited to bilingual legal assistant on [facility] cordless phone at RN discretion. Due to INVOLUNTARY status, patient is being held at [facility] by the Department of Mental Health ([facility]) until 2nd certification by [facility] Psychiatrist can be performed (within 24 hours). Staff will provide de-escalation support (CPI) as needed. If patient wishes to leave [facility], staff will contact [facility] Crisis Screener ([phone]) and Policy Adviser ([phone]) as soon as possible. In the event of elopement, notify [place] [employer] ([phone]). Patient is currently involuntarily at [facility]. [facility] Frontline Machine Shop Inspector will continue seeking placement. Please contact the Policy Adviser for any needed changes to Safety Plan. Safety plan [facility]. Patient will be transported by substance abuse therapist at time of discharge.
--- NOTE | 2025-03-23 11:55 | CMSP_ITS ---
Documented by User: Candace Stauffer 03/23/25 11:55 Date of service: 03/23/25 Time of Service: 11:55 Care Management Safety Plan Status Status: Involuntary Reason for Wait Reason for Wait: Inpatient Admission Safety Plan Safety Plan: INVOLUNTARY FOR INPATIENT PSYCHIATRIC STABILIZATION. Safety plan has been established to meet the needs of the patient, and consideration of the care team, to adhere to patient goals, identify restrictions based on behavioral status, address nutrition, and determine allowed personal belongings, tools for hygiene and personal care. Determine level of activity including ambulation, level of supervision, visitors, and determine privileges based on behaviors and level of engagement by pt. SAFETY PLAN: 1. Will remain on SI/HI precautions. In Paper Clothes 2. Will remain in room under direct supervision of one-on-one staff at all times provided by [employer]; HALLE, INSOLE AND OUTSOLE SPLITTER music pastor. 3. May have paper cups, plates, finger foods as well as a cardboard spoon 4. Follow [facility] Management of the Admitted Behavioral Health Patient policy. 5. Comfort bath system only. 6. No personal belongings 7. Visitors: none at this time. 8. Activities: soft cart items approved per RN discretion. 9. ?Bathroom privileges with supervision 10. Phone: None at this time 11. Due to INVOLUNTARY status, patient is being held at [facility] by the Department of Mental Health ([facility]) until 2nd certification by [facility] Psychiatrist can be performed (within 24 hours). Staff will provide de-escalation support (CPI) as needed. If patient wishes to leave [facility], staff will contact [facility] Crisis Screener ([phone]) and On-Call Library Circulation Technician ([phone]) as soon as possible. In the event of elopement, notify [place] [employer] ([phone]). Patient is currently involuntarily at [facility]. [facility] Frontline Reel Cart Operator will continue seeking placement. Please contact the [employer] Library Circulation Technician ([phone]) for any needed changes to Safety Plan. Safety plan has been provided to interdepartmental care team. Patient will be transported by [employer] at time of discharge. Documented by User: Briseyda Barillas 03/23/25 15:08 Care Management Safety Plan Safety Plan Safety Plan: INVOLUNTARY FOR INPATIENT PSYCHIATRIC STABILIZATION.? Patient is appropriate in all interactions since arriving at [facility]; Pt has demonstrated appropriate coping and communication skills, has articulated his or her needs and concerns and is fully engaged during staff interactions. Safety plan has been established with patient, and care team, to adhere to patient goals, identify restrictions based on behavioral status, address nutrition, and determine allowed personal belongings, tools for hygiene and personal care. Determine level of activity including ambulation, level of supervision, visitors, and determine privileges based on behaviors and level of engagement by pt. SAFETY PLAN: 1. Will remain on suicide precautions, in paper clothes 2. Will remain in Zone B under direct supervision of one-on-one staff at all times provided by [employer]; HALLE, INSOLE AND OUTSOLE SPLITTER music pastor. 3. May have paper cups, plates, finger foods as well as a cardboard spoon with which to eat meals. 4. Follow [facility] Management of the Admitted Behavioral Health Patient policy. 5. Shower available in Zone B without restriction. 6. Personal belongings-soft items permitted at RN discretion. 7. Visitors-none at this time. 8. Activities: soft cart items approved per RN discretion. 9.? Bathroom available in Zone B without restriction. 10. Phone: limited to legal billing specialist on [facility] cordless phone at RN discretion. Due to INVOLUNTARY status, patient is being held at [facility] by the Department of Mental Health ([facility]) until 2nd certification by [facility] Psychiatrist can be performed (within 24 hours). Staff will provide de-escalation support (CPI) as needed. If patient wishes to leave [facility], staff will contact [facility] Crisis Screener ([phone]) and Library Circulation Technician ([phone]) as soon as possible. In the event of elopement, notify [place] [employer] ([phone]). Patient is currently involuntarily at [facility]. [facility] Frontline Reel Cart Operator will continue seeking placement. Please contact the Library Circulation Technician for any needed changes to Safety Plan. Safety [facility]. Patient will be transported by elementary school librarian at time of discharge.
--- NOTE | 2025-03-23 11:56 | CMPROGNOTE_ITS ---
Documented by User: Candace Stauffer 03/23/25 14:32 Date of service: 03/23/25 Time of Service: 11:56 Care Management Progress Note Progress Note Text Progress Note Text: CM huddled with staff regarding Demetris's plan of care. During the huddle he was lying in bed, in his room. Per RN, he seemed more settled after receiving his medication and is appropriate. He is presenting with SI, and HI. Per report, Demetris has made treats to his ; his states that he has not been taking his meds since he was last hospitalized at [facility], however, he claims he has. Per [facility], referrals are sent, with no current offers. CM will continue to f [place]. MH Services (Omit if N/A) Current MH Services: Psychiatric Inp Referred to Internal [facility] (ED embedded) case finisher?: Yes Social Determinants of Health Screening Will the Patient Participate in the Screening?: Unable to obtain Documented by User: Briseyda Barillas 03/23/25 15:00 Care Management Progress Note Progress Note Text Progress Note Text: CM huddled with staff regarding Demetris's plan of care. During the huddle he was lying in bed, in his room. Per RN, he seemed more settled after receiving his medication and is appropriate. Per [facility], he is denying SI and HI today. Per report, Demetris has made treats to his ; his states that he has not been taking his meds since he was last hospitalized at [facility], however, he claims he has. Per [facility], referrals are sent, with no current offers. CM will continue to follow.
--- NOTE | 2025-03-23 15:20 | ED.PROG_ITS ---
Date of service: 03/23/25 Time of Service: 15:20 Medical Decision Making Care was signed out by Dr. Camacho, please see his documentation regarding prior ED course. Patient notably medically clear prior to signout. Plan at signout was to await psychiatric treatment placement for homicidal ideation, psychosis. Patient here on warrant but has been cooperative. Patient lacks insight. Plan at this time after consultation with [facility] this morning is to pursue involuntary hospitalization. Awaiting second certification. Quality:[facility] Health Related Social Needs: No Data to Display Discharge Plan Discharge Details Chief Complaint: PsychEval Clinical Impression: Homicidal ideation Primary Care Provider: Jigna Chacon ED Provider: Shai Navarro Home Meds and New Rx's Prescriptions: No Action metformin 500 mg tablet extended release 24 hr 500 mg PO BID Patient Comments: TAKE TWO TABLETS BY MOUTH EVERY DAY risperidone 0.5 mg tablet 0.5 mg PO BID Patient Comments: TAKE 1 TABLET (0.5mg) BY MOUTH IN THE MORNING AND 2 TABLETS (1mg) IN THE EVENING aripiprazole 30 mg tablet 30 mg PO DAILY Patient Comments: TAKE ONE TABLET BY MOUTH EVERY DAY buprenorphine-naloxone 8-2 mg tablet, sublingual 2 tab SUBLINGUAL DAILY Patient Comments: PLACE TWO TABLETS UNDER THE TONGUE EVERY DAY
--- NOTE | 2025-03-23 16:50 | PDOC.MHPN2 ---
Date of service: 03/23/25 Time of Service: 16:50 Mental Health Emergency Note Release [facility] release signed:: Yes Reason for Visit The client is known to [facility] ([facility]) and has had numerous recent interactions with ES. He receives outpatient treatment through the [facility]. The client was hospitalized in December of 2024 following him being brought in on a MH Warrant then as well for similar symptoms. At that time however, he was not using cocaine. He missed his therapy appointment on 03.22.25 and was later found at his home and picked up by [facility] and Omi GARCÍA. Per Omi's report he was making homicidal threats toward his when he was picked up and at the ED. In the last 2 weeks has the pt presented for ES prior to today?: Unknown Impression Client is a 49-year-old male. Client currently resides with his in their home. Per reports, client and his 's relationship is estranged and client is experiencing HI toward her. Client is currently at [facility] on mental health warrant. It is unknown if the client is employed or not. All underrepresented categories were honored during this assessment. The client presents sitting in his bed listening ot the TV picking at his fingernails. He made little eye contact. He reported he did not know why he was at the ED and so this clinician shared that there were some concerns that he wanted to kill his . He denied this stating why would I do that? I love her. He stated that his just does not want him with anyone else and this is what she does to keep him from others. He said that he had cheated on his even though he stated he loved her. You can have sex with another and still love someone. The client denied SI and HI. He reported his sleep is good and his appetite is also good. He reported that he is/was taking his medications even though his stated otherwise. This clinician asked the client if he would voluntarily go to treatment and he declined so the EE is going to continue to be pursued. Plan/Disposition Recommended Disposition: Hospitalization facilities contacted. Plan: The client's second cert will happen some time this evening. Person reported agreement to plan: No Reports/communication Outcome discussed with: ED/Personnel
--- NOTE | 2025-03-23 19:09 | W.EDPROG ---
Date of service: 03/23/25 Time of Service: 19:09 Medical Decision Making Care assumed from outgoing provider. Patient is a 49-year-old gentleman currently on an involuntary hold for homicidal ideation. His first EE has been filed and we are still awaiting a second certification. No issues during my shift. Quality:[facility] Health Related Social Needs: No Data to Display Discharge Plan Discharge Details Chief Complaint: PsychEval Clinical Impression: Homicidal ideation Primary Care Provider: Jigna Chacon ED Provider: Juan Carlos Yanes Home Meds and New Rx's Prescriptions: No Action metformin 500 mg tablet extended release 24 hr 500 mg PO BID Patient Comments: TAKE TWO TABLETS BY MOUTH EVERY DAY risperidone 0.5 mg tablet 0.5 mg PO BID Patient Comments: TAKE 1 TABLET (0.5mg) BY MOUTH IN THE MORNING AND 2 TABLETS (1mg) IN THE EVENING aripiprazole 30 mg tablet 30 mg PO DAILY Patient Comments: TAKE ONE TABLET BY MOUTH EVERY DAY buprenorphine-naloxone 8-2 mg tablet, sublingual 2 tab SUBLINGUAL DAILY Patient Comments: PLACE TWO TABLETS UNDER THE TONGUE EVERY DAY
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
[2025-03-23] MEDS: risperiDONE 1 MG TAB PO (19:22)
[2025-03-23 19:23] VITALS: BP 118/75; PULSE 83; RESP 18; O2SAT 95
[2025-03-24] MEDS: Nicotine 4 MG GUM CH ×5 (05:12→21:24)
[2025-03-24] MEDS: metFORMIN 500 MG TAB PO ×2 (07:32→17:14)
[2025-03-24] MEDS: Buprenorphine/Naloxone 8 mg/2 mg FILM 2 EACH SL (07:33)
[2025-03-24] MEDS: ARIPiprazole 15 MG TAB 30 MG PO (07:33)
[2025-03-24] MEDS: risperiDONE 0.5 MG TAB PO (07:33)
--- NOTE | 2025-03-24 08:42 | W.EDPROG ---
Date of service: 03/24/25 Time of Service: 08:42 Medical Decision Making I received signout on this 49-year-old male, here voluntarily, but on involuntary hold through . Continues to have homicidal ideations paranoia and delusions. Pending second certification. Patient slept throughout shift. Home medications ordered. Will update documentation as clinically warranted and signed patient out to the evening provider. 3:35 PM No active behavioral issues on my shift. Second certification completed. Will sign patient out to Dr. Yanes. Quality:[facility] Health Related Social Needs: No Data to Display Discharge Plan Discharge Details Chief Complaint: PsychEval Clinical Impression: Homicidal ideation Primary Care Provider: Jigna Chacon ED Provider: [facility] Meds and New Rx's Prescriptions: No Action metformin 500 mg tablet extended release 24 hr 500 mg PO BID Patient Comments: TAKE TWO TABLETS BY MOUTH EVERY DAY risperidone 0.5 mg tablet 0.5 mg PO BID Patient Comments: TAKE 1 TABLET (0.5mg) BY MOUTH IN THE MORNING AND 2 TABLETS (1mg) IN THE EVENING aripiprazole 30 mg tablet 30 mg PO DAILY Patient Comments: TAKE ONE TABLET BY MOUTH EVERY DAY buprenorphine-naloxone 8-2 mg tablet, sublingual 2 tab SUBLINGUAL DAILY Patient Comments: PLACE TWO TABLETS UNDER THE TONGUE EVERY DAY
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
--- NOTE | 2025-03-24 11:42 | CMSP_ITS ---
Date of service: 03/24/25 Time of Service: 11:42 Care Management Safety Plan Status Status: Involuntary Reason for Wait Reason for Wait: Inpatient Admission Safety Plan Safety Plan: INVOLUNTARY FOR INPATIENT PSYCHIATRIC STABILIZATION. Safety plan has been established to meet the needs of the patient, and consideration of the care team, to adhere to patient goals, identify restrictions based on behavioral status, address nutrition, and determine allowed personal belongings, tools for hygiene and personal care. Determine level of activity including ambulation, level of supervision, visitors, and determine privileges based on behaviors and level of engagement by pt. SAFETY PLAN: 1. Will remain on SI/HI precautions. In Paper Clothes 2. Will remain in room under direct supervision of one-on-one staff at all times provided by [employer]; HALLE, BEAUTY DIRECTOR top lift compressor. 3. May have paper cups, plates, finger foods as well as a cardboard spoon 4. Follow [facility] Management of the Admitted Behavioral Health Patient policy. 5. Comfort bath system only. 6. No personal belongings 7. Visitors: none at this time. 8. Activities: soft cart items approved per RN discretion. 9. ?Bathroom privileges with supervision 10. Phone: None at this time 11. Due to INVOLUNTARY status, patient is being held at [facility] by the Department of Mental Health ([facility]) until 2nd certification by [facility] Psychiatrist can be performed (within 24 hours). Staff will provide de-escalation support (CPI) as needed. If patient wishes to leave [facility], staff will contact [facility] Crisis Screener ([phone]) and On-Call Button Sewing Machine Operator ([phone]) as soon as possible. In the event of elopement, notify [facility] Police ([phone]). Patient is currently involuntarily at [facility]. [facility] Frontline Remote Sensing Advisor will continue seeking placement. Please contact the Market Risk Specialist Button Sewing Machine Operator ([phone]) for any needed changes to Safety Plan. Safety plan has been provided to interdepartmental care team. Patient will be transported by [facility] at time of discharge.
--- NOTE | 2025-03-24 11:42 | PDOC.CMSAFE ---
Date of service: 03/24/25 Time of Service: 11:42 Care Management Safety Plan Status Status: Involuntary Reason for Wait Reason for Wait: Inpatient Admission Safety Plan Safety Plan: INVOLUNTARY FOR INPATIENT PSYCHIATRIC STABILIZATION. Safety plan has been established to meet the needs of the patient, and consideration of the care team, to adhere to patient goals, identify restrictions based on behavioral status, address nutrition, and determine allowed personal belongings, tools for hygiene and personal care. Determine level of activity including ambulation, level of supervision, visitors, and determine privileges based on behaviors and level of engagement by pt. SAFETY PLAN: 1. Will remain on SI/HI precautions. In Paper Clothes 2. Will remain in room under direct supervision of one-on-one staff at all times provided by [employer]; HALLE, REHAB DIRECTOR OCCUPATIONAL THERAPIST senior accounting analyst. 3. May have paper cups, plates, finger foods as well as a cardboard spoon 4. Follow [facility] Management of the Admitted Behavioral Health Patient policy. 5. Comfort bath system only. 6. No personal belongings 7. Visitors: none at this time. 8. Activities: soft cart items approved per RN discretion. 9. ?Bathroom privileges with supervision 10. Phone: None at this time 11. Due to INVOLUNTARY status, patient is being held at [facility] by the Department of Mental Health ([facility]) until 2nd certification by [facility] Psychiatrist can be performed (within 24 hours). Staff will provide de-escalation support (CPI) as needed. If patient wishes to leave [facility], staff will contact [facility] Crisis Screener ([phone]) and On-Call Maritime Pilot ([phone]) as soon as possible. In the event of elopement, notify [facility] Police ([phone]). Patient is currently involuntarily at [facility]. [facility] Frontline Tire And Tube Repairer will continue seeking placement. Please contact the Hostel Manager Maritime Pilot ([phone]) for any needed changes to Safety Plan. Safety plan has been provided to interdepartmental care team. Patient will be transported by [employer] at time of discharge.
--- NOTE | 2025-03-24 13:02 | PDOC.CMPRO ---
Date of service: 03/24/25 Time of Service: 11:50 Care Management Progress Note Progress Note Text Progress Note Text: CM huddled with Zone B staff regarding Demetris's plan. His second cert passed last night, and he is currently awaiting an inpatient bed. Social Determinants of Health Screening Will the Patient Participate in the Screening?: Unable to obtain
--- NOTE | 2025-03-24 17:57 | MHPN_ITS ---
Date of service: 03/24/25 Time of Service: 05:52 Mental Health Emergency Note Release [facility] release signed:: Yes Reason for Visit Demetris is currently at [facility] on an EE due to threatening to harm his . Demetris's second cert was passed on 03/23 and he is pending inpatient treatment. Demetris is previously known by [facility] and this travel writer. In the last 2 weeks has the pt presented for ES prior to today?: Unknown Client Information Client is: Adult Outpatient Well Housed: Yes Non Suicidal Self Injury Current: No History: No Safety Risk/Harm to Self or Others Current Ideation to Harm Self or Others: No Risk: Does risk to harm exist?: yes. Access to means: No. Risk: Moderate Risk Duty to warn indicated: No Asssessment/Mental Status Appearance: Disheveled Attitude: Cooperative Behavior: Unremarkable Speech: Normal Affect: Cogruent with mood Mood: Stressed, Anxious and Irritable Thought process: Goal directed Hallucinations: No evidence Delusions: No evidence Attention: Unremarkable Perception: Not impaired Orientation: Fully orientated Memory: Intact Insight: Poor Judgement: Poor Neurovegetative Symptoms Sleep: No change Appetitie: No change Interests: No change Energy: No change Libido: Not applicable Substance Use: Do you use nicotine?: No Have you used substances in the last 7 days?: No Additional Issues: Assaultive/Threatening Behavior: No Medical Concerns: No Client engaged in active self harm w/weapon: No Threatening to run away: No Child reported abuse/neglect: No Voluntarily presenting for services: No Domestic violence is a concern: No Extreme Psychosis or extreme behavior is present: Yes Impression Demetris is a [age] year old , male, who resides with his . Demetris is currently at [facility] due to a mental health warrant, his 2nd cert passed last night as well. Demetris reports he is at [facility] due to threatening his , but he believes she is lying as he does not recall doing this. Demetris presents to this travel writer sitting in his room in Zone B in blue paper scrubs, being calm and cooperative. Demetris reports he has eaten dinner and spent most of his day watching movies. Demetris reports no changes from earlier, he is still denying SI, HI, NSSI. Demetris is short with this travel writer and reports no questions or concerns other than when can he go to treatment. This travel writer let him know as soon as a bed was available we would tell him and he could be transferred. this travel writer will check in with Demetris tomorrow as well. Plan/Disposition Recommended Disposition: Hospitalization (Referrals were made, no beds available at this time. ) facilities contacted. Plan: Demetris will remain at [facility] until inpatient treatment can be secured. Demetris will see [facility] twice daily until placed. Person reported agreement to plan: Yes Facilities contacted if Applicable [facility] Not accepted, No bed available [facility] Not accepted, No bed available, [facility] Not accepted, No bed available [facility] Not accepted, No bed available [facility] Not accepted, Acuity Reports/communication Outcome discussed with: ED/Personnel
--- NOTE | 2025-03-24 21:51 | W.EDPROG ---
Date of service: 03/24/25 Time of Service: 21:56 Medical Decision Making Care assumed from outgoing provider. Patient is a 49-year-old gentleman currently on an involuntary hold with second certification in place, pending placement. No issues during my shift. Quality:SDDE Health Related Social Needs: No Data to Display Discharge Plan Discharge Details Chief Complaint: PsychEval Clinical Impression: Homicidal ideation Primary Care Provider: Jigna Chcaon ED Provider: Juan Carlos Yanes Home Meds and New Rx's Prescriptions: No Action metformin 500 mg tablet extended release 24 hr 500 mg PO BID Patient Comments: TAKE TWO TABLETS BY MOUTH EVERY DAY risperidone 0.5 mg tablet 0.5 mg PO BID Patient Comments: TAKE 1 TABLET (0.5mg) BY MOUTH IN THE MORNING AND 2 TABLETS (1mg) IN THE EVENING aripiprazole 30 mg tablet 30 mg PO DAILY Patient Comments: TAKE ONE TABLET BY MOUTH EVERY DAY buprenorphine-naloxone 8-2 mg tablet, sublingual 2 tab SUBLINGUAL DAILY Patient Comments: PLACE TWO TABLETS UNDER THE TONGUE EVERY DAY
[2025-03-25] MEDS: Buprenorphine/Naloxone 8 mg/2 mg FILM 2 EACH SL (07:10)
[2025-03-25] MEDS: ARIPiprazole 15 MG TAB 30 MG PO (07:11)
[2025-03-25] MEDS: metFORMIN 500 MG TAB PO (07:11)
[2025-03-25] MEDS: risperiDONE 0.5 MG TAB PO (07:12)
[2025-03-25 08:33] VITALS: BP 115/70; PULSE 75; RESP 16; TEMP 35.9; O2SAT 97
--- NOTE | 2025-03-25 08:34 | W.EDPROG ---
Date of service: 03/25/25 Time of Service: 08:34 Medical Decision Making I received signout again on this 49-year-old male in the emergency department currently on an involuntary hold. Second certification completed. No active behavioral issues last shift. Will update documentation as clinically warranted and signed patient out to the oncoming evening provider. 2:36 PM No active behavioral issues. Patient signed out to Dr. Raygoza. Quality:SDOH Health Related Social Needs: No Data to Display Discharge Plan Discharge Details Chief Complaint: PsychEval Clinical Impression: Homicidal ideation Primary Care Provider: Jigna Chacon ED Provider: Orlando Blue Home Meds and New Rx's Prescriptions: No Action metformin 500 mg tablet extended release 24 hr 500 mg PO BID Patient Comments: TAKE TWO TABLETS BY MOUTH EVERY DAY risperidone 0.5 mg tablet 0.5 mg PO BID Patient Comments: TAKE 1 TABLET (0.5mg) BY MOUTH IN THE MORNING AND 2 TABLETS (1mg) IN THE EVENING aripiprazole 30 mg tablet 30 mg PO DAILY Patient Comments: TAKE ONE TABLET BY MOUTH EVERY DAY buprenorphine-naloxone 8-2 mg tablet, sublingual 2 tab SUBLINGUAL DAILY Patient Comments: PLACE TWO TABLETS UNDER THE TONGUE EVERY DAY
[2025-03-25] MEDS: Nicotine 4 MG GUM CH ×2 (09:51→13:40)
--- NOTE | 2025-03-25 11:00 | MHPN_ITS ---
Date of service: 03/25/25 Time of Service: 10:45 Mental Health Emergency Note Release [facility] release signed:: Yes Reason for Visit Demetris is currently at [facility] on an EE due to threatening to harm his . Demetris's second cert was passed on 03/23 and he is pending inpatient treatment. Demetris is previously known by [facility] and this policy writer sales. In the last 2 weeks has the pt presented for ES prior to today?: Unknown Client Information Client is: Adult Outpatient Well Housed: Yes Non Suicidal Self Injury Current: No History: No Safety Risk/Harm to Self or Others Current Ideation to Harm Self or Others: No Risk: Does risk to harm exist?: yes. Access to means: No. Risk: Moderate Risk Duty to warn indicated: No Asssessment/Mental Status Appearance: Disheveled Attitude: Cooperative Behavior: Unremarkable Speech: Normal Affect: Cogruent with mood Mood: Stressed and Anxious Thought process: Unremarkable Hallucinations: No evidence Delusions: No evidence Attention: Unremarkable Perception: Not impaired Orientation: Fully orientated Memory: Intact Insight: Poor Judgement: Poor Neurovegetative Symptoms Sleep: No change Appetitie: No change Interests: No change Energy: No change Libido: Not applicable Substance Use: Do you use nicotine?: No Have you used substances in the last 7 days?: No Additional Issues: Assaultive/Threatening Behavior: No Medical Concerns: No Client engaged in active self harm w/weapon: No Threatening to run away: No Child reported abuse/neglect: No Voluntarily presenting for services: No Domestic violence is a concern: No Extreme Psychosis or extreme behavior is present: Yes Impression Demetris is a [age] year old , male, who resides with his . Demetris is currently at [facility] due to a mental health warrant, his 2nd cert passed on 03/23 as well. Demetris reports he is at [facility] due to threatening his , but he believes she is lying as he does not recall doing this. Demetris presents to this policy writer sales sitting in the common area in Zone B in blue paper scrubs, being calm and cooperative. Demetris is completing a puzzle while talking to this policy writer sales. Demetris reports he slept well and ate breakfast this morning. Demetris disclosed he has. been doing better at [facility] than home as he has been taking all of his medications. Demetris disclosed he would only sometimes take his medications at home. Demetris reports no changes from yesterday, he is still denying SI, HI, NSSI. Demetris is short with this policy writer sales and reports no questions or concerns other than when can he go to treatment. This policy writer sales let him know as soon as a bed was available we would tell him and he could be transferred. this policy writer sales will check in with Demetris tonight as well. Plan/Disposition Recommended Disposition: Hospitalization facilities contacted. Plan: Demetris will remain at [facility] until treatment is secured Person reported agreement to plan: Yes Facilities contacted if Applicable [facility] Not accepted, No bed available [facility] Not accepted, No bed available, [facility] Not accepted, No bed available [facility] Not accepted, No bed available [facility] Not accepted, Acuity Reports/communication Outcome discussed with: ED/Personnel
--- NOTE | 2025-03-25 11:37 | CMPROGNOTE_ITS ---
Date of service: 03/25/25 Time of Service: 11:37 Care Management Progress Note Progress Note Text Progress Note Text: Demetris was seen via zoom by the [facility] worker this morning. He was discussed with [facility] B RN and ER charge. He has referral pending at [facility]. Social Determinants of Health Screening Will the Patient Participate in the Screening?: Unable to obtain
--- NOTE | 2025-03-25 11:41 | CMSP_ITS ---
Date of service: 03/25/25 Time of Service: 11:41 Care Management Safety Plan Status Status: Involuntary Reason for Wait Reason for Wait: Inpatient Admission Safety Plan Safety Plan: Care Management Safety Plan PATIENT NAME: Demetris Thomson UNIT #: [id number] ADMITTING PROVIDER: Maegan Muro PRIMARY CARE PROVIDER: VIVEK PANTOJA MD DATE OF ADMIT: 03/22/25 : 1975 Date of service: 03/24/25 Time of Service: 11:42 Care Management Safety Plan Status Status: Involuntary Reason for Wait Reason for Wait: Inpatient Admission Safety Plan Safety Plan: INVOLUNTARY FOR INPATIENT PSYCHIATRIC STABILIZATION. Safety plan has been established to meet the needs of the patient, and consideration of the care team, to adhere to patient goals, identify restrictions based on behavioral status, address nutrition, and determine allowed personal belongings, tools for hygiene and personal care. Determine level of activity including ambulation, level of supervision, visitors, and determine privileges based on behaviors and level of engagement by pt. SAFETY PLAN: 1. Will remain on SI/HI precautions. In Paper Clothes 2. Will remain in room under direct supervision of one-on-one staff at all times provided by [employer]; DRESSING ROOM PORTER, PSYCHIATRIC CLINICIAN single wire saw operator. 3. May have paper cups, plates, finger foods as well as a cardboard spoon 4. Follow [facility] Management of the Admitted Behavioral Health Patient policy. 5. Comfort bath system only. 6. No personal belongings 7. Visitors: none at this time. 8. Activities: soft cart items approved per RN discretion. 9. ?Bathroom privileges with supervision 10. Phone: None at this time Due to INVOLUNTARY status, patient is being held at [facility] by the Department of Mental Health ([facility]) until 2nd certification by [facility] Psychiatrist can be performed (within 24 hours). Staff will provide de-escalation support (CPI) as needed. If patient wishes to leave [facility], staff will contact [facility] Crisis Screener ([phone]) and On-Call Orientation And Mobility Instructor ([phone]) as soon as possible. In the event of elopement, notify [facility] Police ([phone]). Patient is currently involuntarily at [facility]. [facility] Frontline Animal Care Taker will continue seeking placement. Please contact the Gas Combustion Engineer Orientation And Mobility Instructor ([phone]) for any needed changes to Safety Plan. Safety plan has been provided to interdepartmental care team. Patient will be transported by paste up artist at time of discharge.
--- NOTE | 2025-03-25 11:41 | PDOC.CMSAFE ---
Date of service: 03/25/25 Time of Service: 11:41 Care Management Safety Plan Status Status: Involuntary Reason for Wait Reason for Wait: Inpatient Admission Safety Plan Safety Plan: Care Management Safety Plan PATIENT NAME: Demetris Thomson UNIT #: [id number] ADMITTING PROVIDER: Maegan Muro PRIMARY CARE PROVIDER: VIVEK PANTOJA MD DATE OF ADMIT: 03/22/25 : 1975 Date of service: 03/24/25 Time of Service: 11:42 Care Management Safety Plan Status Status: Involuntary Reason for Wait Reason for Wait: Inpatient Admission Safety Plan Safety Plan: INVOLUNTARY FOR INPATIENT PSYCHIATRIC STABILIZATION. Safety plan has been established to meet the needs of the patient, and consideration of the care team, to adhere to patient goals, identify restrictions based on behavioral status, address nutrition, and determine allowed personal belongings, tools for hygiene and personal care. Determine level of activity including ambulation, level of supervision, visitors, and determine privileges based on behaviors and level of engagement by pt. SAFETY PLAN: 1. Will remain on SI/HI precautions. In Paper Clothes 2. Will remain in room under direct supervision of one-on-one staff at all times provided by [employer]; WOUND SPECIALIST, RELATIONS SPECIALIST forestry aid. 3. May have paper cups, plates, finger foods as well as a cardboard spoon 4. Follow [facility] Management of the Admitted Behavioral Health Patient policy. 5. Comfort bath system only. 6. No personal belongings 7. Visitors: none at this time. 8. Activities: soft cart items approved per RN discretion. 9. ?Bathroom privileges with supervision 10. Phone: None at this time Due to INVOLUNTARY status, patient is being held at [facility] by the Department of Mental Health ([facility]) until 2nd certification by [facility] Psychiatrist can be performed (within 24 hours). Staff will provide de-escalation support (CPI) as needed. If patient wishes to leave [facility], staff will contact [facility] Crisis Screener ([phone]) and On-Call Core Composer Feeder ([phone]) as soon as possible. In the event of elopement, notify [facility] Police ([phone]). Patient is currently involuntarily at [facility]. [facility] Frontline Retoucher Photoengraving will continue seeking placement. Please contact the Library Associate Core Composer Feeder ([phone]) for any needed changes to Safety Plan. Safety plan has been provided to interdepartmental care team. Patient will be transported by drug coordinator at time of discharge.
--- NOTE | 2025-03-25 15:32 | ED.PROG_ITS ---
Date of service: 03/25/25 Time of Service: 15:32 Medical Decision Making In brief, this is a 49-year-old male patient boarding in our emergency department on an involuntary hold with homicidal ideation. Prior to my taking over their care, the patient was medically cleared, and has been resting comfortably. They have met with the social and human services assistant and we are awaiting final dispo. They have not required any additional medications for restraint or sedation. I did provide the patient with the trazodone for sleep given some agitation associated with behavioral outbursts of his neighbor in zone B. The patient was signed out to the oncoming provider prior to final disposition. Mami Raygoza MD Medical Records Medical records reviewed: Yes I reviewed the patient's medical records. Lab Data Lab results reviewed: Yes I reviewed the patient's lab results. Quality:SDOH Health Related Social Needs: No Data to Display Discharge Plan Discharge Details Chief Complaint: PsychEval Clinical Impression: Homicidal ideation Primary Care Provider: Jigna Chacon ED Provider: Mami Raygoza Home Meds and New Rx's Prescriptions: No Action metformin 500 mg tablet extended release 24 hr 500 mg PO BID Patient Comments: TAKE TWO TABLETS BY MOUTH EVERY DAY risperidone 0.5 mg tablet 0.5 mg PO BID Patient Comments: TAKE 1 TABLET (0.5mg) BY MOUTH IN THE MORNING AND 2 TABLETS (1mg) IN THE EVENING aripiprazole 30 mg tablet 30 mg PO DAILY Patient Comments: TAKE ONE TABLET BY MOUTH EVERY DAY buprenorphine-naloxone 8-2 mg tablet, sublingual 2 tab SUBLINGUAL DAILY Patient Comments: PLACE TWO TABLETS UNDER THE TONGUE EVERY DAY
[2025-03-25] MEDS: Nicotine 4 MG LOZG SUC ×2 (18:00→22:08)
--- NOTE | 2025-03-25 19:31 | PDOC.MHPN2 ---
Date of service: 03/25/25 Time of Service: 19:21 Mental Health Emergency Note Release [facility] release signed:: Yes Reason for Visit Demetris is currently at [facility] on an EE due to threatening to harm his . Demetris's second cert was passed on 03/23 and he is pending inpatient treatment. Demetris is previously known by [facility] and this database report writer. In the last 2 weeks has the pt presented for ES prior to today?: Unknown Client Information Client is: Adult Outpatient Well Housed: Yes Non Suicidal Self Injury Current: No History: No Safety Risk/Harm to Self or Others Current Ideation to Harm Self or Others: No Risk: Does risk to harm exist?: No Risk: Moderate Risk Duty to warn indicated: No Asssessment/Mental Status Appearance: Disheveled Attitude: Passive Behavior: Gait disturbances Speech: Normal Affect: Cogruent with mood Mood: Stressed, Anxious and Irritable Thought process: Goal directed Hallucinations: No evidence Delusions: No evidence Attention: Unremarkable Perception: Not impaired Orientation: Fully orientated Memory: Intact Insight: Poor Judgement: Poor Neurovegetative Symptoms Sleep: No change Appetitie: No change Interests: No change Energy: No change Libido: Not applicable Substance Use: Do you use nicotine?: No Have you used substances in the last 7 days?: No Additional Issues: Assaultive/Threatening Behavior: No Medical Concerns: No Client engaged in active self harm w/weapon: No Threatening to run away: No Child reported abuse/neglect: No Voluntarily presenting for services: No Domestic violence is a concern: No Extreme Psychosis or extreme behavior is present: No Impression Demetris is a [age] year old , male, who resides with his . Demetris is currently at [facility] due to a mental health warrant, his 2nd cert passed on 03/23 as well. Demetris reports he is at [facility] due to threatening his , but he believes she is lying as he does not recall doing this. Demetris presents to this database report writer sitting in his room in Zone B in blue paper scrubs, being calm and cooperative. Demetris presents with gait disturbance and frustrated that this database report writer is checking in with him. Demetris is more short than usual and reports he ate dinner, he is fine, he played games and watched a movie today. Demetris reports he has no questions and would like to be transferred from [facility]. This database report writer let Demetris know once a bed becomes available he will be transferred to another hospital for treatment. Demetris will remain at [facility] until treatment can be secured. Demetris will be seen twice daily until placed. Plan/Disposition Recommended Disposition: Hospitalization facilities contacted. Plan: Demetris will remain at [facility] until placement is secured. Person reported agreement to plan: Yes Facilities contacted if Applicable [facility] Not accepted, No bed available [facility] Not accepted, No bed available, [facility] Not accepted, No bed available [facility] Not accepted, No bed available [facility] Not accepted, No bed available Reports/communication Outcome discussed with: ED/Personnel
[2025-03-25] MEDS: traZODone 50 MG TAB PO (22:24)
[2025-03-26] MEDS: Buprenorphine/Naloxone 8 mg/2 mg FILM 2 EACH SL (07:51)
[2025-03-26] MEDS: ARIPiprazole 15 MG TAB 30 MG PO (07:51)
[2025-03-26] MEDS: metFORMIN 500 MG TAB PO ×2 (07:51→17:07)
[2025-03-26] MEDS: risperiDONE 0.5 MG TAB PO (07:51)
[2025-03-26] MEDS: Nicotine 4 MG LOZG SUC ×5 (08:43→21:04)
--- NOTE | 2025-03-26 11:46 | MHPN_ITS ---
Date of service: 03/26/25 Time of Service: 11:46 Mental Health Emergency Note Release [facility] release signed:: Yes Reason for Visit The client is known to [facility] ([facility]) and has had numerous recent interactions with ES. He receives outpatient treatment through the [facility]. The client was hospitalized in December of 2024 following him being brought in on a MH Warrant then as well for similar symptoms. At that time however, he was not using cocaine. He missed his therapy appointment on 03.22.25 and was later found at his home and picked up by [facility] and Omi GARCÍA. Per Omi's report he was making homicidal threats toward his when he was picked up and at the ED. This assessment is completed face to face at bedside. In the last 2 weeks has the pt presented for ES prior to today?: No Impression Client is a 49-year-old male. Client currently resides with his in their home. Per reports, client and his 's relationship is estr anged and client is experiencing HI toward her. Client is currently at [facility] Zone B on mental health warrant. It is unknown if the client is employed or not. All underrepresented categories were honored during this assessment. The client presented lying in bed asleep when this clinician arrived. He woke at the call of his name and sat up on his shoulder to engage. The client remained sleepy while engaging however. Per report of nursing the other client waiting for placement has upset this client from time to time however, he is handling these situations well and not engaging with the other client. Nursing and client report he is taking all his prescribed medications, and is eating and sleeping well. He had poor eye contact due to being sleepy. He is reported also by nursing to still be having delusional thinking that President Angel likes him so allows him to get away with things. When asked this morning why he was at the ED he told his nurse Because I believe things he did not elaborate further. Plan/Disposition Recommended Disposition: Hospitalization facilities contacted. Plan: The client will remain at [facility] pending admission. He will be assessed twice daily until such time. Person reported agreement to plan: No Reports/communication Outcome discussed with: ED/Personnel
--- NOTE | 2025-03-26 13:23 | NUR.NOTE ---
[facility] package [facility] at [phone] at the request of Edgar Molina.
--- NOTE | 2025-03-26 15:36 | W.EDPROG ---
Date of service: 03/26/25 Time of Service: 15:36 Medical Decision Making care assumed from outgoing provider. Patient is currently on an involuntary hold for homicidal ideation and psychosis. Patient is currently pending placement. He is being a little bit more agitated by his neighbor in zone B who cannot control their behavior today so he was written for some as needed Zyprexa. Otherwise no issues today., Quality:SDOH Health Related Social Needs: No Data to Display Discharge Plan Discharge Details Chief Complaint: PsychEval Clinical Impression: Homicidal ideation Primary Care Provider: Jigna Chacon ED Provider: Juan Carlos Yanes Home Meds and New Rx's Prescriptions: No Action metformin 500 mg tablet extended release 24 hr 500 mg PO BID Patient Comments: TAKE TWO TABLETS BY MOUTH EVERY DAY risperidone 0.5 mg tablet 0.5 mg PO BID Patient Comments: TAKE 1 TABLET (0.5mg) BY MOUTH IN THE MORNING AND 2 TABLETS (1mg) IN THE EVENING aripiprazole 30 mg tablet 30 mg PO DAILY Patient Comments: TAKE ONE TABLET BY MOUTH EVERY DAY buprenorphine-naloxone 8-2 mg tablet, sublingual 2 tab SUBLINGUAL DAILY Patient Comments: PLACE TWO TABLETS UNDER THE TONGUE EVERY DAY
--- NOTE | 2025-03-26 16:13 | W.EDPROG ---
Date of service: 03/26/25 Time of Service: 16:13 Medical Decision Making Patient here on a voluntary status for HI, no new acute complaints. Will continue to monitor until safe disposition found. Quality:SDOH Health Related Social Needs: No Data to Display Discharge Plan Discharge Details Chief Complaint: PsychEval Clinical Impression: Homicidal ideation Primary Care Provider: Jigna Chacon ED Provider: Orlando Parham Home Meds and New Rx's Prescriptions: No Action metformin 500 mg tablet extended release 24 hr 500 mg PO BID Patient Comments: TAKE TWO TABLETS BY MOUTH EVERY DAY risperidone 0.5 mg tablet 0.5 mg PO BID Patient Comments: TAKE 1 TABLET (0.5mg) BY MOUTH IN THE MORNING AND 2 TABLETS (1mg) IN THE EVENING aripiprazole 30 mg tablet 30 mg PO DAILY Patient Comments: TAKE ONE TABLET BY MOUTH EVERY DAY buprenorphine-naloxone 8-2 mg tablet, sublingual 2 tab SUBLINGUAL DAILY Patient Comments: PLACE TWO TABLETS UNDER THE TONGUE EVERY DAY
--- NOTE | 2025-03-26 16:40 | CMSP_ITS ---
Date of service: 03/26/25 Time of Service: 16:40 Care Management Safety Plan Status Status: Involuntary Reason for Wait Reason for Wait: Inpatient Admission Safety Plan Safety Plan: INVOLUNTARY FOR INPATIENT PSYCHIATRIC STABILIZATION. Safety plan has been established to meet the needs of the patient, and consideration of the care team, to adhere to patient goals, identify restrictions based on behavioral status, address nutrition, and determine allowed personal belongings, tools for hygiene and personal care. Determine level of activity including ambulation, level of supervision, visitors, and determine privileges based on behaviors and level of engagement by pt. SAFETY PLAN: 1. Will remain on SI/HI precautions. In Paper Clothes 2. Will remain in zone B under direct supervision of one-on-one staff at all times provided by [employer]; HALLE, CLIENT ACCOUNT MANAGER facilities director. 3. May have paper cups, plates, finger foods as well as a cardboard spoon 4. Follow [facility] Management of the Admitted Behavioral Health Patient policy. 5. Shower available in zone B without restriction. 6. No personal belongings 7. Visitors: none at this time. 8. Activities: soft cart items approved per RN discretion. 9. ?Bathroom available in Zone B without restriction. 10. Phone: limited to trademark paralegal on [facility] cordless phone at RN discretion. 11. Due to INVOLUNTARY status, patient is being held at [facility] by the Department of Mental Health ([facility]) until 2nd certification by [facility] Psychiatrist can be performed (within 24 hours). Staff will provide de-escalation support (CPI) as needed. If patient wishes to leave [facility], staff will contact [facility] Crisis Screener ([phone]) and On-Call Community Support Specialist ([phone]) as soon as possible. In the event of elopement, notify [place] [employer] ([phone]). Patient is currently involuntarily at [facility]. [facility] Frontline Television Repairman will continue seeking placement. Please contact the Middle School Reading Teacher Community Support Specialist ([phone]) for any needed changes to Safety Plan. Safety plan has been provided to interdepartmental care team. Patient will be transported by [employer] at time of discharge.
--- NOTE | 2025-03-26 16:40 | PDOC.CMSAFE ---
Date of service: 03/26/25 Time of Service: 16:40 Care Management Safety Plan Status Status: Involuntary Reason for Wait Reason for Wait: Inpatient Admission Safety Plan Safety Plan: INVOLUNTARY FOR INPATIENT PSYCHIATRIC STABILIZATION. Safety plan has been established to meet the needs of the patient, and consideration of the care team, to adhere to patient goals, identify restrictions based on behavioral status, address nutrition, and determine allowed personal belongings, tools for hygiene and personal care. Determine level of activity including ambulation, level of supervision, visitors, and determine privileges based on behaviors and level of engagement by pt. SAFETY PLAN: 1. Will remain on SI/HI precautions. In Paper Clothes 2. Will remain in zone B under direct supervision of one-on-one staff at all times provided by [employer]; HALLE, NEUROPHYSIOLOGIST applications support lead. 3. May have paper cups, plates, finger foods as well as a cardboard spoon 4. Follow [facility] Management of the Admitted Behavioral Health Patient policy. 5. Shower available in zone B without restriction. 6. No personal belongings 7. Visitors: none at this time. 8. Activities: soft cart items approved per RN discretion. 9. ?Bathroom available in Zone B without restriction. 10. Phone: limited to legal arbitrator on [facility] cordless phone at RN discretion. 11. Due to INVOLUNTARY status, patient is being held at [facility] by the Department of Mental Health ([facility]) until 2nd certification by [facility] Psychiatrist can be performed (within 24 hours). Staff will provide de-escalation support (CPI) as needed. If patient wishes to leave [facility], staff will contact [facility] Crisis Screener ([phone]) and On-Call Roll Edge Machine Operator ([phone]) as soon as possible. In the event of elopement, notify [place] [employer] ([phone]). Patient is currently involuntarily at [facility]. [facility] Frontline Community Support Associate will continue seeking placement. Please contact the Director Embalmer Roll Edge Machine Operator ([phone]) for any needed changes to Safety Plan. Safety plan has been provided to interdepartmental care team. Patient will be transported by [employer] at time of discharge.
--- NOTE | 2025-03-26 16:43 | PDOC.CMPRO ---
Date of service: 03/26/25 Time of Service: 16:43 Care Management Progress Note Progress Note Text Progress Note Text: CM huddled with [facility] and [facility] staff regarding Demetris's plan of care. Per RN, he has been appropriate today, and he is denying SI/HI. Per report, he has been taking his medications as prescribed, and appears to be doing better than when he arrived. Per [facility], he is currently denying SI/HI. Per report, there are no beds available at this time. Demetris is currently involuntary, waiting for inpatient psychiatric care. Referrals are sent; Safety plan in place. CM will continue to follow. Social Determinants of Health Screening Will the Patient Participate in the Screening?: Unable to obtain
[2025-03-26 17:08] VITALS: BP 121/74; PULSE 73; TEMP 36.8; O2SAT 96
--- NOTE | 2025-03-26 17:46 | NUR.NOTE ---
pt with cont delusions. Stated that he is involved with 'the President of [employer]'s step daughter Cecelia, they hate that she loves me so they framed my by drugging me and making me kill my friend by throwing him to sharks', pt also had delusions that he was being kept by 'others' that want to keep him quiet, and stated 'you are all in danger if they find me'.
[2025-03-26 19:20] VITALS: BP 122/77; PULSE 73; RESP 18; TEMP 36.4; O2SAT 96
[2025-03-26] MEDS: risperiDONE 1 MG TAB PO (20:05)
[2025-03-26] MEDS: OLANZapine ODT 5 MG TAB 10 MG PO (20:43)
[2025-03-27] MEDS: Nicotine 4 MG LOZG SUC ×5 (06:31→21:14)
--- NOTE | 2025-03-27 06:34 | W.EDPROG ---
Date of service: 03/27/25 Time of Service: 06:34 Medical Decision Making Patient remains in ED pending involuntary psychiatric admission after second certification has gone through. He has been maintained on his medications pending admission. No issues on the overnight shift. Quality:[facility] Health Related Social Needs: No Data to Display Discharge Plan Discharge Details Chief Complaint: PsychEval Clinical Impression: Homicidal ideation Primary Care Provider: Jigna Chacon ED Provider: Dwaine Becerril [place] and New Rx's Prescriptions: No Action metformin 500 mg tablet extended release 24 hr 500 mg PO BID Patient Comments: TAKE TWO TABLETS BY MOUTH EVERY DAY risperidone 0.5 mg tablet 0.5 mg PO BID Patient Comments: TAKE 1 TABLET (0.5mg) BY MOUTH IN THE MORNING AND 2 TABLETS (1mg) IN THE EVENING aripiprazole 30 mg tablet 30 mg PO DAILY Patient Comments: TAKE ONE TABLET BY MOUTH EVERY DAY buprenorphine-naloxone 8-2 mg tablet, sublingual 2 tab SUBLINGUAL DAILY Patient Comments: PLACE TWO TABLETS UNDER THE TONGUE EVERY DAY
--- NOTE | 2025-03-27 07:41 | ED.PROG_ITS ---
Date of service: 03/27/25 Time of Service: 07:41 Medical Decision Making I received signout on this 49-year-old male who is currently here involuntarily for paranoia and HI. No issues overnight. Will update documentation as clinically warranted and sign patient out to the evening provider. 1 PM I spoke to Dr. Ethan Maher from the [facility] who graciously agreed to accept the patient for hospitalization. 2 PM I signed transfer paperwork on this patient transfer to the [facility] via [employer] Quality:SDOH Health Related Social Needs: No Data to Display Discharge Plan Disposition Patient Disposition: Psychiatric Hospital/Unit Specific Psychiatric Facility: [facility] Discharge Details Chief Complaint: PsychEval Clinical Impression: Homicidal ideation Primary Care Provider: Jigna Chacon ED Provider: Orlando Blue Home Meds and New Rx's Prescriptions: No Action metformin 500 mg tablet extended release 24 hr 500 mg PO BID Patient Comments: TAKE TWO TABLETS BY MOUTH EVERY DAY risperidone 0.5 mg tablet 0.5 mg PO BID Patient Comments: TAKE 1 TABLET (0.5mg) BY MOUTH IN THE MORNING AND 2 TABLETS (1mg) IN THE EVENING aripiprazole 30 mg tablet 30 mg PO DAILY Patient Comments: TAKE ONE TABLET BY MOUTH EVERY DAY buprenorphine-naloxone 8-2 mg tablet, sublingual 2 tab SUBLINGUAL DAILY Patient Comments: PLACE TWO TABLETS UNDER THE TONGUE EVERY DAY
[2025-03-27] MEDS: risperiDONE 0.5 MG TAB PO (08:13)
[2025-03-27] MEDS: Buprenorphine/Naloxone 8 mg/2 mg FILM 2 EACH SL (08:13)
[2025-03-27] MEDS: ARIPiprazole 15 MG TAB 30 MG PO (08:13)
[2025-03-27] MEDS: metFORMIN 500 MG TAB PO ×2 (08:13→17:19)
--- NOTE | 2025-03-27 13:18 | CMSP_ITS ---
Date of service: 03/27/25 Time of Service: 13:18 Care Management Safety Plan Status Status: Involuntary Reason for Wait Reason for Wait: Inpatient Admission Safety Plan Safety Plan: INVOLUNTARY FOR INPATIENT PSYCHIATRIC STABILIZATION. Safety plan has been established to meet the needs of the patient, and consideration of the care team, to adhere to patient goals, identify restrictions based on behavioral status, address nutrition, and determine allowed personal belongings, tools for hygiene and personal care. Determine level of activity including ambulation, level of supervision, visitors, and determine privileges based on behaviors and level of engagement by pt. SAFETY PLAN: 1. Will remain on SI/HI precautions. In Paper Clothes 2. Will remain in zone B under direct supervision of one-on-one staff at all times provided by [employer]; HALLE, WAFER PRODUCTION LEAD WORKER precast concrete ironworker. 3. May have paper cups, plates, finger foods as well as a cardboard spoon 4. Follow [facility] Management of the Admitted Behavioral Health Patient policy. 5. Shower available in zone B without restriction. 6. No personal belongings 7. Visitors: none at this time. 8. Activities: soft cart items approved per RN discretion. 9. ?Bathroom available in Zone B without restriction. 10. Phone: limited to family law paralegal on [facility] cordless phone at RN discretion. 11. Due to INVOLUNTARY status, patient is being held at [facility] by the Department of Mental Health ([facility]) until 2nd certification by [facility] Psychiatrist can be performed (within 24 hours). Staff will provide de-escalation support (CPI) as needed. If patient wishes to leave [facility], staff will contact [facility] Crisis Screener ([phone]) and On-Call Tile Layer Helper ([phone]) as soon as possible. In the event of elopement, notify [place] [employer] ([phone]). Patient is currently involuntarily at [facility]. [facility] Frontline Harvest Manager will continue seeking placement. Please contact the Medical Records Library Professor Tile Layer Helper ([phone]) for any needed changes to Safety Plan. Safety plan has been provided to interdepartmental care team. Patient will be transported by [employer] at time of discharge.
--- NOTE | 2025-03-27 13:18 | PDOC.CMSAFE ---
Date of service: 03/27/25 Time of Service: 13:18 Care Management Safety Plan Status Status: Involuntary Reason for Wait Reason for Wait: Inpatient Admission Safety Plan Safety Plan: INVOLUNTARY FOR INPATIENT PSYCHIATRIC STABILIZATION. Safety plan has been established to meet the needs of the patient, and consideration of the care team, to adhere to patient goals, identify restrictions based on behavioral status, address nutrition, and determine allowed personal belongings, tools for hygiene and personal care. Determine level of activity including ambulation, level of supervision, visitors, and determine privileges based on behaviors and level of engagement by pt. SAFETY PLAN: 1. Will remain on SI/HI precautions. In Paper Clothes 2. Will remain in zone B under direct supervision of one-on-one staff at all times provided by [employer]; HALLE, BORING MACHINE OPERATOR VERTICAL cell inspector. 3. May have paper cups, plates, finger foods as well as a cardboard spoon 4. Follow [facility] Management of the Admitted Behavioral Health Patient policy. 5. Shower available in zone B without restriction. 6. No personal belongings 7. Visitors: none at this time. 8. Activities: soft cart items approved per RN discretion. 9. ?Bathroom available in Zone B without restriction. 10. Phone: limited to legal records manager on [facility] cordless phone at RN discretion. 11. Due to INVOLUNTARY status, patient is being held at [facility] by the Department of Mental Health ([facility]) until 2nd certification by [facility] Psychiatrist can be performed (within 24 hours). Staff will provide de-escalation support (CPI) as needed. If patient wishes to leave [facility], staff will contact [facility] Crisis Screener ([phone]) and On-Call Field Crew Chief ([phone]) as soon as possible. In the event of elopement, notify [place] [employer] Police ([phone]). Patient is currently involuntarily at [facility]. [facility] Frontline Auto Wrecker will continue seeking placement. Please contact the Train Gate Attendant Field Crew Chief ([phone]) for any needed changes to Safety Plan. Safety plan has been provided to interdepartmental care team. Patient will be transported by [employer] at time of discharge.
--- NOTE | 2025-03-27 13:19 | CMPROGNOTE_ITS ---
Date of service: 03/27/25 Time of Service: 13:19 Care Management Progress Note Progress Note Text Progress Note Text: CM huddled with [facility] and [facility] staff to discuss Demetris's plan of care. Per RN, he has been appropriate, and was seen walking around the unit during the huddle. Per [facility], Jay is considering him for admission, possibly today, but his referral is still being reviewed. Once he is accepted by a facility, [facility] will coordinate secure transport. Demetris is involuntary, waiting for inpatient psychiatric treatment. Referral have been placed by [facility]. Safety plan in place; CM will continue to follow. Social Determinants of Health Screening Will the Patient Participate in the Screening?: Unable to obtain
--- NOTE | 2025-03-27 13:19 | PDOC.CMPRO ---
Date of service: 03/27/25 Time of Service: 13:19 Care Management Progress Note Progress Note Text Progress Note Text: CM huddled with [facility] and [facility] staff to discuss Demetris's plan of care. Per RN, he has been appropriate, and was seen walking around the unit during the huddle. Per [facility], [facility] is considering him for admission, possibly today, but his referral is still being reviewed. Once he is accepted by a facility, [facility] will coordinate secure transport. Demetris is involuntary, waiting for inpatient psychiatric treatment. Referral have been placed by [facility]. Safety plan in place; CM will continue to follow. Social Determinants of Health Screening Will the Patient Participate in the Screening?: Unable to obtain
[2025-03-27 15:27] VITALS: BP 129/81; PULSE 76; RESP 18; O2SAT 92
--- NOTE | 2025-03-27 18:23 | W.EDPROG ---
Date of service: 03/27/25 Time of Service: 17:00 Medical Decision Making In brief, this is a 49-year-old male patient boarding in our emergency department on an involuntary hold with homicidal ideation. Prior to my taking over their care, the patient was medically cleared, and has been resting comfortably. They have met with the social contact worker and the patient has been accepted to [facility] with a plan to transfer tomorrow. They have not required any additional medications for restraint or sedation. The patient was signed out to the oncoming provider prior to final disposition. Remained hemodynamically appropriate, calm, cooperative, and comfortable while under my care. Mami Raygoza MD Medical Records Medical records reviewed: Yes I reviewed the patient's medical records. Quality:SDOH Health Related Social Needs: No Data to Display Discharge Plan Disposition Patient Disposition: Psychiatric Hospital/Unit Specific Psychiatric Facility: [facility] Discharge Details Clinical Impression: Homicidal ideation Primary Care Provider: Jigna Chacon ED Provider: Mami Raygoza Home Meds and New Rx's Prescriptions: No Action metformin 500 mg tablet extended release 24 hr 500 mg PO BID Patient Comments: TAKE TWO TABLETS BY MOUTH EVERY DAY risperidone 0.5 mg tablet 0.5 mg PO BID Patient Comments: TAKE 1 TABLET (0.5mg) BY MOUTH IN THE MORNING AND 2 TABLETS (1mg) IN THE EVENING aripiprazole 30 mg tablet 30 mg PO DAILY Patient Comments: TAKE ONE TABLET BY MOUTH EVERY DAY buprenorphine-naloxone 8-2 mg tablet, sublingual 2 tab SUBLINGUAL DAILY Patient Comments: PLACE TWO TABLETS UNDER THE TONGUE EVERY DAY
[2025-03-27] MEDS: risperiDONE 1 MG TAB PO ×2 (20:15)
[2025-03-27] MEDS: OLANZapine ODT 5 MG TAB 10 MG PO (22:24)
--- NOTE | 2025-03-28 06:37 | W.EDPROG ---
Date of service: 03/28/25 Time of Service: 06:38 Medical Decision Making No issues on the overnight shift. Patient is supposed to be transported to the [facility] today for involuntary psychiatric admission. Discharge Plan Discharge Details Chief Complaint: PsychEval Clinical Impression: Homicidal ideation Primary Care Provider: Jigna Chacon ED Provider: Dwaine Becerril [place] Meds and New Rx's Prescriptions: No Action metformin 500 mg tablet extended release 24 hr 500 mg PO BID Patient Comments: TAKE TWO TABLETS BY MOUTH EVERY DAY risperidone 0.5 mg tablet 0.5 mg PO BID Patient Comments: TAKE 1 TABLET (0.5mg) BY MOUTH IN THE MORNING AND 2 TABLETS (1mg) IN THE EVENING aripiprazole 30 mg tablet 30 mg PO DAILY Patient Comments: TAKE ONE TABLET BY MOUTH EVERY DAY buprenorphine-naloxone 8-2 mg tablet, sublingual 2 tab SUBLINGUAL DAILY Patient Comments: PLACE TWO TABLETS UNDER THE TONGUE EVERY DAY
--- NOTE | 2025-03-28 07:20 | W.EDPROG ---
Date of service: 03/28/25 Time of Service: 07:22 Medical Decision Making Patient on EE status and reportedly was accepted at [facility] yesterday but is still pending transportation. Will continue to monitor until safe disposition found. Quality:SDOH Health Related Social Needs: No Data to Display Discharge Plan Disposition Specific Psychiatric Facility: [facility] Condition: Serious Discharge Details Chief Complaint: PsychEval Clinical Impression: Homicidal ideation Primary Care Provider: Jigna Chacon ED Provider: Orlando Parham Home Meds and New Rx's Prescriptions: No Action metformin 500 mg tablet extended release 24 hr 500 mg PO BID Patient Comments: TAKE TWO TABLETS BY MOUTH EVERY DAY risperidone 0.5 mg tablet 0.5 mg PO BID Patient Comments: TAKE 1 TABLET (0.5mg) BY MOUTH IN THE MORNING AND 2 TABLETS (1mg) IN THE EVENING aripiprazole 30 mg tablet 30 mg PO DAILY Patient Comments: TAKE ONE TABLET BY MOUTH EVERY DAY buprenorphine-naloxone 8-2 mg tablet, sublingual 2 tab SUBLINGUAL DAILY Patient Comments: PLACE TWO TABLETS UNDER THE TONGUE EVERY DAY
[2025-03-28] MEDS: ARIPiprazole 15 MG TAB 30 MG PO (07:54)
[2025-03-28] MEDS: risperiDONE 0.5 MG TAB PO (07:54)
[2025-03-28] MEDS: Buprenorphine/Naloxone 8 mg/2 mg FILM 2 EACH SL (07:54)
[2025-03-28] MEDS: metFORMIN 500 MG TAB PO ×2 (07:54→16:55)
[2025-03-28 08:37] VITALS: BP 96/64; PULSE 83; RESP 21; TEMP 36.4; O2SAT 95
[2025-03-28] MEDS: Nicotine 4 MG LOZG SUC ×3 (09:33→18:27)
--- NOTE | 2025-03-28 11:48 | CMSP_ITS ---
Date of service: 03/28/25 Time of Service: 11:48 Care Management Safety Plan Status Status: Involuntary Reason for Wait Reason for Wait: Inpatient Admission Safety Plan Safety Plan: INVOLUNTARY FOR INPATIENT PSYCHIATRIC STABILIZATION. Safety plan has been established to meet the needs of the patient, and consideration of the care team, to adhere to patient goals, identify restrictions based on behavioral status, address nutrition, and determine allowed personal belongings, tools for hygiene and personal care. Determine level of activity including ambulation, level of supervision, visitors, and determine privileges based on behaviors and level of engagement by pt. SAFETY PLAN: 1. Will remain on SI/HI precautions. In Paper Clothes 2. Will remain in zone B under direct supervision of one-on-one staff at all times provided by [employer]; HALLE, CTO network systems engineer. 3. May have paper cups, plates, finger foods as well as a cardboard spoon 4. Follow [facility] Management of the Admitted Behavioral Health Patient policy. 5. Shower available in zone B without restriction. 6. No personal belongings 7. Visitors: none at this time. 8. Activities: soft cart items approved per RN discretion. 9. ?Bathroom available in Zone B without restriction. 10. Phone: limited to accredited legal secretary on [facility] cordless phone at RN discretion. 11. Due to INVOLUNTARY status, patient is being held at [facility] by the Department of Mental Health ([facility]) until 2nd certification by [facility] Psychiatrist can be performed (within 24 hours). Staff will provide de-escalation support (CPI) as needed. If patient wishes to leave [facility], staff will contact [facility] Crisis Screener ([phone]) and On-Call Staff Editor ([phone]) as soon as possible. In the event of elopement, notify [place] [employer] ([phone]). Patient is currently involuntarily at [facility]. [facility] Frontline Production Utility Worker will continue seeking placement. Please contact the Angle Roll Operator Staff Editor ([phone]) for any needed changes to Safety Plan. Safety plan has been provided to interdepartmental care team. Patient will be transported by [employer] at time of discharge.
--- NOTE | 2025-03-28 11:48 | PDOC.CMSAFE ---
Date of service: 03/28/25 Time of Service: 11:48 Care Management Safety Plan Status Status: Involuntary Reason for Wait Reason for Wait: Inpatient Admission Safety Plan Safety Plan: INVOLUNTARY FOR INPATIENT PSYCHIATRIC STABILIZATION. Safety plan has been established to meet the needs of the patient, and consideration of the care team, to adhere to patient goals, identify restrictions based on behavioral status, address nutrition, and determine allowed personal belongings, tools for hygiene and personal care. Determine level of activity including ambulation, level of supervision, visitors, and determine privileges based on behaviors and level of engagement by pt. SAFETY PLAN: 1. Will remain on SI/HI precautions. In Paper Clothes 2. Will remain in zone B under direct supervision of one-on-one staff at all times provided by [employer]; HALLE, NUCLEAR CARDIOLOGY TECHNOLOGIST cushion former. 3. May have paper cups, plates, finger foods as well as a cardboard spoon 4. Follow [facility] Management of the Admitted Behavioral Health Patient policy. 5. Shower available in zone B without restriction. 6. No personal belongings 7. Visitors: none at this time. 8. Activities: soft cart items approved per RN discretion. 9. ?Bathroom available in Zone B without restriction. 10. Phone: limited to patent paralegal on [facility] cordless phone at RN discretion. 11. Due to INVOLUNTARY status, patient is being held at [facility] by the Department of Mental Health ([facility]) until 2nd certification by [facility] Psychiatrist can be performed (within 24 hours). Staff will provide de-escalation support (CPI) as needed. If patient wishes to leave [facility], staff will contact [facility] Crisis Screener ([phone]) and On-Call Coil Builder ([phone]) as soon as possible. In the event of elopement, notify [place] [employer] ([phone]). Patient is currently involuntarily at [facility]. [facility] Frontline Vehicle Operator will continue seeking placement. Please contact the Guardian Ad Litem Coil Builder ([phone]) for any needed changes to Safety Plan. Safety plan has been provided to interdepartmental care team. Patient will be transported by [facility] at time of discharge.
--- NOTE | 2025-03-28 11:49 | PDOC.CMPRO ---
Date of service: 03/28/25 Time of Service: 11:49 Care Management Progress Note Progress Note Text Progress Note Text: Demetris was accepted at [facility] for inpatient psychiatric treatment yesterday, but [facility] was not able to arrange secure transport. Demetris will transport to [facility] today via [facility] transport, coordinated by [facility], around 6:30pm. Safety plan remains in place until Demetris is able to transfer. CM will continue to follow. Social Determinants of Health Screening Will the Patient Participate in the Screening?: Unable to obtain
[2025-03-28 14:12] VITALS: BP 109/67
== END 2025-03-28 19:18 ==
PROVIDERS: Physician Assistant; Emergency Provider Emergency Medicine; PCP Family Medicine
DX: R45.850 Homicidal ideations (principal)
CPT/HCPCS: 99285 ×8; 36415; 00123; 80053; 80307; H0046; 80320; 80329; 84443; 85025

== ENCOUNTER 2025-07-27 13:05 | Emergency (ER) | payer MEDICAID, SELFPAY ==
[2025-07-27 13:16] VITALS: BP 210/100; PULSE 84; RESP 16; O2SAT 98
--- NOTE | 2025-07-27 13:30 | RT.EKG_ITS ---
APPROVED REPORT Exam: Resting ECG Reason for Exam: hypertension Patient Location: E HR:77 bpm ECG Measurements Heart Rate 77 AXIS UT 159 P 52 QRSd 102 QRS -43 QT 358 T 38 QTc 404 Conclusion Sinus rhythm...normal P axis, V-rate 60- 99
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
[2025-07-27 14:23] LABS: Abs Immature Grans 0.01 10^3/uL (0.0-0.06); HCT 45.2 % (40.0-50.0); HGB 14.8 g/dL (13.5-17.5); Immature Grans % 0.2 %; MCH 27.8 pg (27.0-33.0); MCHC 32.7 % (32.0-36.0); MCV 85 fL (80-95); MPV 9.1 fL (8.0-11.0); Platelet Count 251 10^3/uL (130-400); RBC 5.32 10^6/uL (4.36-5.78); RDW 12.7 % (11.8-14.1); RDW-SD 39.3 fL; WBC 6.04 10^3/uL (4.4-10.8)
[2025-07-27 14:43] LABS: ALT 26 U/L (16-63); AST 18 U/L (15-37); Albumin 3.8 g/dL (3.4-5.0); Alkaline Phosphatase 56 U/L (46-116); Anion Gap 1.6 mmol/L (3-11); BUN 20 mg/dL (7-18); Bilirubin, Total 0.3 mg/dL (0.2-1.0); CO2 34.4 mmol/L (21.0-32.0); Calcium 9.7 mg/dL (8.5-10.1); Chloride 103 mmol/L (98-107); Estimated GFR 93.42 (mL/min/1.73m2); Glucose 125 mg/dL (74-106); Magnesium 2.1 mg/dL (1.8-2.4); Potassium 4.7 mmol/L (3.5-5.1); Sodium 139 mmol/L (136-145); Total Protein 7.7 g/dL (6.4-8.2)
[2025-07-27 14:59] LABS: METHADONE URINE SCREEN Negative (Negative)
[2025-07-27 15:10] VITALS: BP 125/81; PULSE 74; RESP 16; O2SAT 98
[2025-07-27] MEDS: Nicotine 4 MG LOZG SUC ×3 (15:33→20:02)
[2025-07-27 15:43] LABS: Cannabinoids THC Positive (Negative)
[2025-07-27 15:54] LABS: COVID-19 PCR Negative (Negative); RSV PCR Negative (Negative)
--- NOTE | 2025-07-27 17:52 | ED.PSYCHBOAR ---
Date of service: 07/27/25 Time of Service: 17:52 Psychiatric Border Handoff Update Brief Story: Patient evaluated a with the significant services and is still having thoughts of wanting to kill his and also making payments about wanting to rape people so we will proceed with filing an EE. Status: EE Able to leave: no, this patient is an EE Mediation Reconciliation performed: Yes Code Status ordered: Yes Diet ordered: Yes Discharge Plan Discharge Details Chief Complaint: PsychEval Clinical Impression: Homicidal ideations Primary Care Provider: Jigna Chacon ED Provider: Orlando Parham Home Meds and New Rx's Prescriptions: No Action metformin 500 mg tablet extended release 24 hr 500 mg PO BID Patient Comments: TAKE TWO TABLETS BY MOUTH EVERY DAY risperidone 0.5 mg tablet 0.5 mg PO BID Patient Comments: TAKE 1 TABLET (0.5mg) BY MOUTH IN THE MORNING AND 2 TABLETS (1mg) IN THE EVENING aripiprazole 30 mg tablet 30 mg PO DAILY Patient Comments: TAKE ONE TABLET BY MOUTH EVERY DAY buprenorphine-naloxone 8-2 mg tablet, sublingual 2 tab SUBLINGUAL DAILY Patient Comments: PLACE TWO TABLETS UNDER THE TONGUE EVERY DAY haloperidol 2 mg tablet 2 mg PO HS Patient Comments: TAKE ONE TABLET BY MOUTH AT BEDTIME
[2025-07-27 19:02] VITALS: BP 145/84; PULSE 74; RESP 16; TEMP 36.6; O2SAT 97
[2025-07-27] MEDS: metFORMIN C.R. 500 MG TABCR PO (19:11)
[2025-07-27] MEDS: risperiDONE 0.5 MG TAB PO (19:11)
[2025-07-27] MEDS: Haloperidol 1 MG TAB 2 MG PO (19:11)
[2025-07-27] MEDS: Acetaminophen 500 MG TAB (20:03)
[2025-07-27] MEDS: Nicotine 21 MG/24 HR PATCH (20:05)
[2025-07-27] MEDS: LORazepam 1 MG TAB 2 MG PO (22:38)
[2025-07-27] MEDS: OLANZapine 10 MG TAB PO (22:39)
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
--- NOTE | 2025-07-28 08:08 | PDOC.CMSAFE ---
Date of service: 07/28/25 Time of Service: 08:09 Care Management Safety Plan Status Status: Involuntary Reason for Wait Reason for Wait: Inpatient Admission (EE filed, endorsing HI) Safety Plan Safety Plan: INVOLUNTARY FOR INPATIENT PSYCHIATRIC STABILIZATION.? Patient is appropriate in all interactions since arriving at [facility]; Pt has demonstrated appropriate coping and communication skills, has articulated his or her needs and concerns and is fully engaged during staff interactions Interdisciplinary huddle with [facility] Clinician Shawna, primary RN Mami Martinez MD, RN Waiter/Waitress Counter Tiara and RN HALINA Garcia. Demetris has been appropriate in interactions and is eating and sleeping adequately, per primary RN. Team reviewed patients request to use the phone to call his , and given the circumstances of this admission it was determined that phone privileges should remain limited to legal kashia at this time. Further, requests will be discussed collectively by the team on an ongoing basis while patient awaits involuntary psychiatric treatment at an accepting facility. Update per [facility], they are waiting for a decision from Jay and [facility] does not have capacity today. CM will follow. Safety plan has been established with patient, and care team, to adhere to patient goals, identify restrictions based on behavioral status, address nutrition, and determine allowed personal belongings, tools for hygiene and personal care. Determine level of activity including ambulation, level of supervision, visitors, and determine privileges based on behaviors and level of engagement by pt. SAFETY PLAN: 1. Will remain on suicide precautions, in paper clothes 2. Will remain in Zone B under direct supervision of one-on-one staff at all times provided by [employer]; HALLE, MANAGER GLOBAL COMMUNICATIONS director of institutional research. 3. May have paper cups, plates, finger foods as well as a cardboard spoon with which to eat meals. 4. Follow [facility] Management of the Admitted Behavioral Health Patient policy. 5. Shower available in Zone B without restriction. 6. Personal belongings-soft items permitted at RN discretion. 7. Visitors-none at this time. 8. Activities: soft cart items approved per RN discretion. 9.? Bathroom available in Zone B without restriction. 10. Phone: limited to legal kashia, use of [facility] cordless phone at RN discretion. Due to INVOLUNTARY status, patient is being held at [facility] by the Department of Mental Health (DM) until 2nd certification by [facility] Psychiatrist can be performed (within 24 hours). Staff will provide de-escalation support (CPI) as needed. If patient wishes to leave [facility], staff will contact [facility] Crisis Screener ([phone]) and Stringed Instrument Repairer ([phone]) as soon as possible. In the event of elopement, notify [facility] Police ([phone]). Patient is currently involuntarily at [facility]. [facility] Frontline Cement Loader will continue seeking placement. Please contact the Stringed Instrument Repairer for any needed changes to Safety Plan. Safety plan has been provided to interdepartmental care team. Patient will be transported by [facility] at time of discharge.
[2025-07-28] MEDS: metFORMIN C.R. 500 MG TABCR PO ×2 (08:29→20:41)
[2025-07-28] MEDS: risperiDONE 0.5 MG TAB PO ×2 (08:30→20:41)
[2025-07-28] MEDS: Buprenorphine/Naloxone 8 mg/2 mg FILM 2 EACH SL (08:30)
[2025-07-28] MEDS: Nicotine 4 MG LOZG SUC ×6 (08:30→20:41)
[2025-07-28] MEDS: ARIPiprazole 15 MG TAB 30 MG PO (08:40)
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
[2025-07-28] MEDS: Acetaminophen 500 MG TAB 1000 MG PO ×2 (09:55→20:42)
[2025-07-28 11:37] VITALS: BP 114/69; PULSE 70; RESP 14; TEMP 36.2; O2SAT 97
[2025-07-28] MEDS: Nicotine 21 MG/24 HR PATCH (12:41)
[2025-07-28] MEDS: Ibuprofen 600 MG TAB PO (12:45)
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
[2025-07-28 18:26] VITALS: BP 109/69; PULSE 97; RESP 16; TEMP 36.7; O2SAT 97
[2025-07-28] MEDS: Haloperidol 1 MG TAB 2 MG PO (20:41)
--- NOTE | 2025-07-28 21:15 | PDOC.MHPN2 ---
Date of service: 07/28/25 Time of Service: 20:50 Suicide Severity Rate CSSRS Have you wished you were or wished you could go to sleep and not wake up?: No Have you actually had any thoughts of killing yourself?: No CSSRS2 Have you been thinking about how you might do this?: No Have you had these thoughts and had some intention of acting on them?: No Have you started to work out or worked out the details of how to kill yourself? Do you intend to carry out this plan?: No CSSRS3 Have you ever done anything, started to do anything or prepared to do anything to end your life?: Yes CSSRS4 Was this within the past three months?: No Screening Score Total Score: 2 Screening: Positive Mental Health Emergency Note Release [facility] release signed:: Yes Reason for Visit Homicidal Ideations, Mental Health Warrant In the last 2 weeks has the pt presented for ES prior to today?: Unknown Non Suicidal Self Injury Current: No History: No Risk: Does risk to harm exist?: yes. Access to means: Yes. Types of Means: Other weapons. Details: Knives, Tree Cutting Tools . Counseling provided: No Asssessment/Mental Status Appearance: Disheveled Attitude: Cooperative Behavior: Agitated and Repetitive movements (Pacing) Speech: Pressured Affect: Cogruent with mood Mood: Stressed, Anxious and Irritable Thought process: Goal directed and Poverty of content Hallucinations: No evidence Delusions: yes, Grandiose and Bizarre Attention: Inattention Perception: Not impaired Orientation: Fully orientated Memory: Intact Insight: Fair Judgement: Poor Impression Client is marginallyl cooperative, distracted, pacing, agitated, stating he's bored and wants to go home. Client denies homicidal ideations due to goal of returning home. Plan/Disposition Recommended Disposition: Hospitalization facilities contacted. Plan: Client remains at [facility] while awaiting involuntary placement for mental health treatment. Behavioral care plan is appropriate and should be observed. Reports/communication Outcome discussed with: ED/Personnel
--- NOTE | 2025-07-29 07:01 | ED.PSYCHBOAR ---
Date of service: 07/29/25 Time of Service: 07:01 Psychiatric Border Handoff Update Brief Story: In brief, this is a 49-year-old male patient boarding in our emergency department on an EE hold for decompensated schizophrenia and homicidal ideations. Prior to my taking over their care, the patient was medically cleared, and has been resting comfortably. They have met with the social sciences research scientist and we are awaiting final dispo. They have not required any additional medications for restraint or sedation. They have been admitted to ED psych observation. The patient was signed out to the oncoming provider prior to final disposition. Remained hemodynamically appropriate, calm, cooperative, and comfortable while under my care. Mami Raygoza MD Status: EE Able to leave: no, this patient is an EE Behavioral Concerns: None Potential Disposition: Inpatient psychiatric care Barriers to Disposition: Awaiting placement/acceptance Medical Concerns: Chronic right leg pain after an injury, well-managed with Tylenol and ibuprofen Mediation Reconciliation performed: Yes Code Status ordered: Yes Diet ordered: Yes Discharge Plan Discharge Details Chief Complaint: PsychEval Clinical Impression: Homicidal ideations Primary Care Provider: Jigna Chacon ED Provider: Mami Raygoza Home Meds and New Rx's Prescriptions: No Action metformin 500 mg tablet extended release 24 hr 500 mg PO BID Patient Comments: TAKE TWO TABLETS BY MOUTH EVERY DAY risperidone 0.5 mg tablet 0.5 mg PO BID Patient Comments: TAKE 1 TABLET (0.5mg) BY MOUTH IN THE MORNING AND 2 TABLETS (1mg) IN THE EVENING aripiprazole 30 mg tablet 30 mg PO DAILY Patient Comments: TAKE ONE TABLET BY MOUTH EVERY DAY buprenorphine-naloxone 8-2 mg tablet, sublingual 2 tab SUBLINGUAL DAILY Patient Comments: PLACE TWO TABLETS UNDER THE TONGUE EVERY DAY haloperidol 2 mg tablet 2 mg PO HS Patient Comments: TAKE ONE TABLET BY MOUTH AT BEDTIME
[2025-07-29] MEDS: ARIPiprazole 15 MG TAB 30 MG PO (07:20)
[2025-07-29] MEDS: risperiDONE 0.5 MG TAB PO ×2 (07:21→20:05)
[2025-07-29] MEDS: Buprenorphine/Naloxone 8 mg/2 mg FILM 2 EACH SL (07:21)
[2025-07-29 07:24] VITALS: BP 121/72; PULSE 76; RESP 16; TEMP 36.1; O2SAT 95
[2025-07-29] MEDS: Nicotine 21 MG/24 HR PATCH TD (07:24)
[2025-07-29] MEDS: Nicotine 4 MG LOZG SUC ×8 (08:12→23:45)
[2025-07-29] MEDS: Acetaminophen 500 MG TAB 1000 MG PO ×3 (08:22→20:05)
[2025-07-29] MEDS: LORazepam 1 MG TAB PO ×2 (09:48→21:43)
[2025-07-29] MEDS: metFORMIN C.R. 500 MG TABCR 1000 MG PO ×2 (09:52→20:06)
--- NOTE | 2025-07-29 11:23 | PDOC.MHPN2 ---
Date of service: 07/29/25 Time of Service: 09:50 Mental Health Emergency Note Release [facility] release signed:: Yes Reason for Visit The client presented to the [facility] ED on a mental health warrant. 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 Per chart review the client has been warranted to treatment three times since December of this year. This is his first assessment of the day by emergency services. In the last 2 weeks has the pt presented for ES prior to today?: No Client Information Client is: Adult Outpatient Well Housed: Yes Non Suicidal Self Injury Current: No History: No Safety Risk/Harm to Self or Others Current Ideation to Harm Self or Others: No Risk: Does risk to harm exist?: yes. Risk: Moderate Risk Duty to warn indicated: No Asssessment/Mental Status Appearance: Well groomed Attitude: Cooperative, Guarded and Friendly Behavior: Unremarkable Speech: Normal Affect: Cogruent with mood Mood: Other (The client reports his mood as good ) Thought process: Circumstational and Poverty of content Hallucinations: No Delusions: No Attention: Unremarkable Perception: Not impaired Orientation: Fully orientated Memory: Intact Insight: Poor Judgement: Poor Neurovegetative Symptoms Sleep: Increase Appetitie: Increase Interests: No change Energy: No change Additional Issues: Assaultive/Threatening Behavior: No Medical Concerns: No Client engaged in active self harm w/weapon: No Threatening to run away: No Child reported abuse/neglect: No Voluntarily presenting for services: No Domestic violence is a concern: No Extreme Psychosis or extreme behavior is present: No Impression Client is a 49-year-old biological male who currently resides with his in their home in [place], [place]. The client presents to [facility] ED on a mental health warrant on 07/27. The client is seen in [facility] scrubs laying down in his hospital bed watching TV. Affect is appears to be congruent with mood. Speech is in normal range. Client is friendly and cooperative; they report their mood as good. Thought process appears to be a poverty of content and circumstantial. The client denied visual and auditory hallucinations. There are no delusions observed by this clinician. Cognitive assessment reveals orientation to person and place and time. The client reports an increase in sleep and appetite. The client reports to be doing good today and in a good mood. The client states he has been spending his time watching TV and playing cards with [facility] staff Brook. The client denied knowing why he is at [facility] awaiting involuntary placement. Shortly after the client was heard saying don't know why she would put me here and that he remembers her saying that he threatened her. The client states it makes him feel awful that she is saying this stuff about him. The client denied having any questions or request from this clinician. Per collateral report of [facility] staff Brook the client has been appropriate and cooperative. Brook states the client has reported to be bored while in the [facility] but is easily redirected. The client is reported to be taking all of his medications as prescribed today. Plan/Disposition Recommended Disposition: Hospitalization facilities contacted. Plan: The client will remain at [facility] in [facility] until involuntary inpatient treatment is secured. The client will be assessed twice daily until placed. Reports/communication Outcome discussed with: ED/Personnel
[2025-07-29] MEDS: Haloperidol 1 MG TAB 2 MG PO (20:05)
--- NOTE | 2025-07-29 21:15 | MHPN_ITS ---
Date of service: 07/29/25 Time of Service: 18:18 Mental Health Emergency Note Release [facility] release signed:: Yes Reason for Visit The client presented to the [facility] ED on a mental health warrant. 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 Per chart review the client has been warranted to treatment three times since December of this year. This is his second assessment of the day by emergency services. In the last 2 weeks has the pt presented for ES prior to today?: No Client Information Client is: Adult Outpatient Well Housed: Yes Non Suicidal Self Injury Current: No History: No Safety Risk/Harm to Self or Others Current Ideation to Harm Self or Others: No Risk: Does risk to harm exist?: yes. Access to means: No. Risk: Moderate Risk Duty to warn indicated: No Asssessment/Mental Status Appearance: Unremarkable and Well groomed Attitude: Cooperative and Friendly Behavior: Unremarkable Speech: Normal Affect: Cogruent with mood Mood: Other (The client reports his mood as not too bad) Thought process: Unremarkable Hallucinations: No Delusions: No Attention: Unremarkable Perception: Not impaired Orientation: Fully orientated Memory: Intact Insight: Fair Judgement: Fair Neurovegetative Symptoms Sleep: No change Appetitie: No change Interests: No change Energy: No change Libido: Not applicable Additional Issues: Assaultive/Threatening Behavior: No Medical Concerns: No Client engaged in active self harm w/weapon: No Threatening to run away: No Child reported abuse/neglect: No Voluntarily presenting for services: No Domestic violence is a concern: No Extreme Psychosis or extreme behavior is present: No Impression Client is a 49-year-old biological male who currently resides with his in their home in [place], [place]. The client presents to [facility] ED on a mental health warrant on 07/27. The client is seen in [facility] scrubs sitting in the common area of the Zone B looking for a movie to watch. Affect is appears to be congruent with mood. Speech is in normal range. Client is friendly and cooperative with this clinician; they report their mood as not too bad. Thought process appears to be goal directed. The client denied visual and auditory hallucinations. There are no delusions observed by this clinician. Cognitive assessment reveals orientation to person and place and time. The client reports to have spent his day watching movies and playing cards. The client denied current SI, HI and NSSI with no intent or plan. The client shared that he works with [employer] in [place], [place] and thinking his employer will wonder where he is. The client asked this clinician how long he will be at [facility] and how long his treatment will be. This clinician stated they were unsure of how long either would be as it is out of their control but was hopeful it would be speedy for him. Plan/Disposition Recommended Disposition: Hospitalization facilities contacted. Plan: The client will remain at [facility] in Zone B until involuntary inpatient treatment is secured. The client will be assessed twice daily until placed. Reports/communication Outcome discussed with: ED/Personnel
[2025-07-30 06:04] VITALS: BP 110/71; PULSE 82; TEMP 36.2; O2SAT 96
[2025-07-30] MEDS: Acetaminophen 500 MG TAB 1000 MG PO (06:12)
[2025-07-30] MEDS: metFORMIN C.R. 500 MG TABCR 1000 MG PO ×2 (07:41→18:07)
[2025-07-30] MEDS: ARIPiprazole 15 MG TAB 30 MG PO (07:41)
[2025-07-30] MEDS: Buprenorphine/Naloxone 8 mg/2 mg FILM 2 EACH SL (07:42)
[2025-07-30] MEDS: risperiDONE 0.5 MG TAB PO ×2 (07:42→18:07)
[2025-07-30] MEDS: Nicotine 21 MG/24 HR PATCH TD (08:39)
[2025-07-30] MEDS: Nicotine 4 MG LOZG SUC ×4 (10:33→18:07)
--- NOTE | 2025-07-30 13:27 | ED.PROG1_ITS ---
Date of service: 07/30/25 Time of Service: 13:27 Psychiatric Border Handoff Update Brief Story: Patient has been stable throughout the shift. No interventions needed. Patient schizophrenia is remained stable. Patient has been medically cleared. I was contacted by Dr. Hernandez at [facility]. Patient has been accepted for transfer. I have extensively reviewed the treatment plan with the patient. I have addressed all patient concerns at this time. I have also discussed the plan with the admitting physician and they agree with the current assessment and plan and have agreed to assume responsibility for the patient. All parties demonstrate verbal understanding and agreement with our assessment and plan at this time. The documentation in this chart was dictated using [employer] dictation software. Please excuse any dictation errors. Status: EE Able to leave: no, this patient is an EE Mediation Reconciliation performed: Yes Code Status ordered: Yes Diet ordered: Yes Discharge Plan Disposition Patient Disposition: [facility] Hospital/Unit Specific Psychiatric Facility: [facility] Condition: Stable Discharge Details Clinical Impression: Homicidal ideations Primary Care Provider: Jigna Chacon ED Provider: Marcelo Camacho Home Meds and New Rx's Prescriptions: No Action metformin 500 mg tablet extended release 24 hr 500 mg PO BID Patient Comments: TAKE TWO TABLETS BY MOUTH EVERY DAY risperidone 0.5 mg tablet 0.5 mg PO BID Patient Comments: TAKE 1 TABLET (0.5mg) BY MOUTH IN THE MORNING AND 2 TABLETS (1mg) IN THE EVENING aripiprazole 30 mg tablet 30 mg PO DAILY Patient Comments: TAKE ONE TABLET BY MOUTH EVERY DAY buprenorphine-naloxone 8-2 mg tablet, sublingual 2 tab SUBLINGUAL DAILY Patient Comments: PLACE TWO TABLETS UNDER THE TONGUE EVERY DAY haloperidol 2 mg tablet 2 mg PO HS Patient Comments: TAKE ONE TABLET BY MOUTH AT BEDTIME Discharge Instructions Additional Instructions: Patient was here for schizophrenia and homicidal ideations. Patient remained stable throughout shift. Patient was here involuntarily secondary to the homicidal thoughts. Patient has been accepted at [facility].
--- NOTE | 2025-07-30 15:26 | CMSP_ITS ---
Date of service: 07/30/25 Time of Service: 15:26 Care Management Safety Plan Status Status: Involuntary Reason for Wait Reason for Wait: Inpatient Admission Safety Plan Safety Plan: INVOLUNTARY FOR INPATIENT PSYCHIATRIC STABILIZATION.? Patient is appropriate in all interactions since arriving at [facility]; Pt has demonstrated appropriate coping and communication skills, has articulated his or her needs and concerns and is fully engaged during staff interactions Safety plan has been established with patient, and care team, to adhere to patient goals, identify restrictions based on behavioral status, address nutrition, and determine allowed personal belongings, tools for hygiene and personal care. Determine level of activity including ambulation, level of supervision, visitors, and determine privileges based on behaviors and level of engagement by pt. SAFETY PLAN: 1. Will remain on suicide precautions, in paper clothes 2. Will remain in Zone B under direct supervision of one-on-one staff at all times provided by [employer]; HALLE, TRUST OPERATIONS ASSISTANT phlebotomy program coordinator. 3. May have paper cups, plates, finger foods as well as a cardboard spoon with which to eat meals. 4. Follow [facility] Management of the Admitted Behavioral Health Patient policy. 5. Shower available in Zone B without restriction. 6. Personal belongings-soft items permitted at RN discretion. 7. Visitors-none at this time. 8. Activities: soft cart items approved per RN discretion. 9.? Bathroom available in Zone B without restriction. 10. Phone: limited to legal [place], use of [facility] cordless phone at RN discretion. Due to INVOLUNTARY status, patient is being held at [facility] by the Department of Mental Health ([facility]) until 2nd certification by [facility] Psychiatrist can be performed (within 24 hours). Staff will provide de-escalation support (CPI) as needed. If patient wishes to leave [facility], staff will contact [facility] Crisis Screener ([phone]) and Edi Analyst ([phone]) as soon as possible. In the event of elopement, notify [facility] Police ([phone]). Patient is currently involuntarily at [facility]. [facility] Frontline Granite Countertop Installer will continue seeking placement. Please contact the Edi Analyst for any needed changes to Safety Plan. Safety plan has been provided to interdepartmental care team. Patient will be transported by [facility] at time of discharge.
--- NOTE | 2025-07-30 15:26 | PDOC.CMSAFE ---
Date of service: 07/30/25 Time of Service: 15:26 Care Management Safety Plan Status Status: Involuntary Reason for Wait Reason for Wait: Inpatient Admission Safety Plan Safety Plan: INVOLUNTARY FOR INPATIENT PSYCHIATRIC STABILIZATION.? Patient is appropriate in all interactions since arriving at [facility]; Pt has demonstrated appropriate coping and communication skills, has articulated his or her needs and concerns and is fully engaged during staff interactions Safety plan has been established with patient, and care team, to adhere to patient goals, identify restrictions based on behavioral status, address nutrition, and determine allowed personal belongings, tools for hygiene and personal care. Determine level of activity including ambulation, level of supervision, visitors, and determine privileges based on behaviors and level of engagement by pt. SAFETY PLAN: 1. Will remain on suicide precautions, in paper clothes 2. Will remain in Zone B under direct supervision of one-on-one staff at all times provided by [employer]; HALLE, MANAGER OF INTERNATIONAL asbestos worker helper. 3. May have paper cups, plates, finger foods as well as a cardboard spoon with which to eat meals. 4. Follow [facility] Management of the Admitted Behavioral Health Patient policy. 5. Shower available in Zone B without restriction. 6. Personal belongings-soft items permitted at RN discretion. 7. Visitors-none at this time. 8. Activities: soft cart items approved per RN discretion. 9.? Bathroom available in Zone B without restriction. 10. Phone: limited to legal [place], use of [facility] cordless phone at RN discretion. Due to INVOLUNTARY status, patient is being held at [facility] by the Department of Mental Health ([facility]) until 2nd certification by [facility] Psychiatrist can be performed (within 24 hours). Staff will provide de-escalation support (CPI) as needed. If patient wishes to leave [facility], staff will contact [facility] Crisis Screener ([phone]) and Survey Party Chief ([phone]) as soon as possible. In the event of elopement, notify [place] [employer] Police ([phone]). Patient is currently involuntarily at [facility]. [facility] Frontline Painting Supervisor will continue seeking placement. Please contact the Survey Party Chief for any needed changes to Safety Plan. Safety plan has been provided to interdepartmental care team. Patient will be transported by [facility] at time of discharge.
--- NOTE | 2025-07-30 15:29 | CMPROGNOTE_ITS ---
Date of service: 07/30/25 Time of Service: 15:30 Care Management Progress Note Progress Note Text Progress Note Text: CM discussed Demetris's plan of care with ED staff and [facility]; per [facility], he has been accepted at [facility] for admission today. CM received a call from ED [employer] today, stating that Demetris's , Laura called, and asked to speak with Demetris. Per team discussion, as Demetris's HI is directed at his , it was decided that this may not be a therapeutic interaction while he is in zone B, awaiting treatment. CM called Laura and discussed this with her; she expressed understanding and was grateful for the call. CM updated Laura, informing her that he would likely transfer to [facility] today (she is on current HIPAA). [facility] coordinated transportation through [facility], which is scheduled for this evening at 19:30. Safety plan in place while Demetris is at [facility], awaiting transfer to treatment. CM will continue to follow. Social Determinants of Health Screening Will the Patient Participate in the Screening?: Declined to provide
[2025-07-30] MEDS: Haloperidol 1 MG TAB 2 MG PO (18:07)
== END 2025-07-30 18:14 ==
PROVIDERS: Student in an Organized Health Care Education/Training Program; Emergency Provider Student in an Organized Health Care Education/Training Program; PCP Family Medicine
DX: R05.9 Cough, unspecified; R45.850 Homicidal ideations; F14.920 Cocaine use, unspecified with intoxication, uncomplicated; Z72.0 Tobacco use
CPT/HCPCS: 00123; 80053; 80307; 87637; 93005; 96127; 99285; H0046; 83735; 85025; 93010